=== PATIENT | female | born 1955 ===

== ENCOUNTER 2016-11-06 19:37 | Inpatient (IN) | payer MEDICAID ==
[2016-11-06] MEDS ORDERED: Povidone Iodine Topical 10% Sol ONE (20:08)
[2016-11-06 20:30] LABS: BASO # 0.1 K/uL (0.0-0.2); BASO % 0.7 % (0.0-2.0); EOS # 0.1 K/uL (0.0-0.7); HEMATOCRIT 44.9 % (34.0-47.0); LYMPH # 2.8 K/uL (1.0-4.3); LYMPH % 20.7 % (20.0-40.0); MEAN CELL VOLUME 90.3 fl (81.0-99.0); MEAN CORPUSCULAR HEMOGLOBIN 29.9 pg (27.0-31.0); MEAN CORPUSCULAR HGB CONC 33.1 g/dL (33.0-37.0); MEAN PLATELET VOLUME 8.6 fl (7.2-11.7); MONO # 0.9 K/uL (0.0-0.8); NEUT # 9.5 K/uL (1.8-7.0); NEUT % 70.6 % (50.0-75.0); NRBC % 0.1 % (0.0-0.0); RED CELL DISTRIBUTION WIDTH 13.5 % (11.5-14.5); WHITE BLOOD COUNT 13.5 K/uL (4.8-10.8)
--- NOTE | 2016-11-06 20:37 | ED PDOC ---
HPI: Psych/Substance Abuse Time Seen by Provider: 11/06/16 19:45 Chief Complaint (Nursing): Altered Mental Status Chief Complaint (Provider): Bizarre Behavior History Per: Patient, Family (son) History/Exam Limitations: no limitations (though history per patient may be unreliable) Onset/Duration Of Symptoms: Days (x3) Current Symptoms Are (Timing): Still Present Suicide/Self Injury Attempted (Context): None Involuntary Hold By: None Additional Complaint(s): Sabi Sorensen is a 61 year old female, with a past medical history inclusive of HTN, COPD, thyroid issues, bipolar disorder, anxiety, depression and previous suicide attempts, who presents to the ED on 11/06/16, via EMS and accompanied by her son, for the evaluation of bizarre behavior that she has reportedly exhibited over the past 3 days. Per son, patient has been stating that various members of her family are either having babies or dying, none of which are true. In addition, patient has not been sleeping well of late, with son also noting that the patient's home environment is "a mess" and that there was vomit present in the house. Though patient has reported she is "fine", son is unsure as to whether she is taking her medications appropriately. ED visit was prompted after patient had walked out of her bedroom with a bleeding left foot just prior to arrival and had been unable to give any history as to how/ why she had been injured. Of note, history as reported by patient may be unreliable. PMD: Tay Forman Past Medical History Reviewed: Historical Data, Nursing Documentation, Vital Signs Vital Signs: Last Vital Signs Temp Pulse 83 11/06/16 19:42 Resp 18 11/06/16 19:42 BP 107/80 11/06/16 19:42 Pulse Ox 98 11/06/16 19:42 - Medical History PMH: Anxiety, Arthritis, Asthma, Bipolar Disorder, COPD, Depression, HTN, Hypercholesterolemia Denies: Diabetes, Hepatitis, HIV, Chronic Kidney Disease, Seizures, Sexually Transmitted Disease - Surgical History Surgical History: - Family History Family History: States: Unknown Family Hx - Home Medications Home Medications: Ambulatory Orders Medication Instructions Recorded Acetaminophen/Oxycodone Hydr 1 tab PO Q6H 03/22/16 [Percocet 10/325 mg Tab] Albuterol 0.083% [Albuterol 0.083% 2.5 mg INH PRN PRN 03/22/16 Inhal Diana (2.5 mg/3 ml) UD] Alprazolam [Xanax] 2 mg PO TID 03/22/16 Atorvastatin [Lipitor] 10 mg PO DIN 03/22/16 Celecoxib [celeBREX] 200 mg PO DAILY 03/22/16 Diclofenac Sodium [Voltaren] 100 gm TP DAILY 03/22/16 Meclizine HCl [Antivert/25] 25 mg PO Q6H PRN 03/22/16 Montelukast [Singulair] 10 mg PO DAILY 03/22/16 Omeprazole 20 mg PO DAILY 03/22/16 SUMAtriptan [Imitrex Tab] 50 mg PO PRN 03/22/16 Zolpidem [Ambien] 10 mg PO HS 03/22/16 Fluticasone/Salmeterol [Advair 1 puff INH BID #0 blst.w.dev 03/29/16 500-50 Diskus] Gabapentin [Neurontin] 300 mg PO QID #0 cap 03/29/16 - Allergies Allergies/Adverse Reactions: Allergies Allergy/AdvReac Type Severity Reaction Status Date / Time No Known Allergies Allergy Verified 11/10/15 15:19 Review of Systems ROS Statement: Except As Marked, All Systems Reviewed And Found Negative (and as per HPI, however history may be unreliable.) Gastrointestinal: Positive for: Vomiting Musculoskeletal: Positive for: Foot Pain (bleeding wound on left foot) Psych: Positive for: Anxiety, Psychosis, Other (bizarre behavior, decreased sleep) Physical Exam - Reviewed Nursing Documentation Reviewed: Yes Vital Signs Reviewed: Yes - Physical Exam Appears: Positive for: Non-toxic, In Acute Distress (mild painful/psychiatric distress) Head Exam: Positive for: ATRAUMATIC, NORMOCEPHALIC Skin: Positive for: Normal Color, Warm, Dry Eye Exam: Positive for: Normal appearance, PERRL ENT: Negative for: Pharyngeal Erythema, Tonsillar Exudate Neck: Positive for: Painless ROM, Supple Cardiovascular/Chest: Positive for: Regular Rate, Rhythm. Negative for: Murmur Respiratory: Positive for: Normal Breath Sounds. Negative for: Respiratory Distress Gastrointestinal/Abdominal: Positive for: Normal Exam, Soft. Negative for: Tenderness Back: Positive for: Normal Inspection. Negative for: Decreased ROM Extremity: Positive for: Normal ROM (of all extremities), Other (superficial laceration noted to hallux of left foot w/slow ooze of blood, well approximated) . Negative for: Deformity, Swelling Lymphatic: Negative for: Adenopathy Neurologic/Psych: Positive for: Alert, Oriented (x2), Mood/Affect (anxous mood w /pressured speech and poor concentration/thought process). Negative for: Motor/ Sensory Deficits - Laboratory Results Result Diagrams: 11/06/16 20:13 11/06/16 20:13 - ECG ECG: Positive for: Interpreted By Me ECG Rhythm: Positive for: Normal QRS, Normal ST Segment, Sinus Rhythm O2 Sat by Pulse Oximetry: 98 (RA) Pulse Ox Interpretation: Normal - Radiology X-Ray: Interpreted by Me X-Ray Interpretation: No Acute Disease Medical Decision Making Medical Decision Makin:45 Initial Impression: will clear patient medically for psychiatric evaluation Initial Plan: * EKG * CXR * XR Left Foot * Labs * Lipase * TSH * PTT * PT * Magnesium * Phosphorus * Acetaminophen * Salicylate * Udip * Urine Drug Screen * Crisis Evaluation * Reevaluation 21:10 Labs reviewed, mildly elevated WBC count (13.0). Per podiatry recommendation will order administration of both IV NS 500ml at 500mls/hr and Ancef IV. Wound care performed by Dr Guadalupe. Evaluated by NATALIE Tenorio who dw Dr Acevedo. Pt to be admitted for depression Pt medically stable for psychiatric admission Scribe Attestation: Documented by Kendal Valderrama, acting as a scribe for Daniela Lockett MD. Provider Scribe Attestation: All medical record entries made by the Scribe were at my direction and personally dictated by me. I have reviewed the chart and agree that the record accurately reflects my personal performance of the history, physical exam, medical decision making, and the department course for this patient. I have also personally directed, reviewed, and agree with the discharge instructions and disposition. Disposition - Clinical Impression Clinical Impression: Foot laceration, Depression Counseled Patient/Family Regarding: Studies Performed, Diagnosis - Disposition Disposition Time: 21:00 Condition: STABLE - Pt Status Changed To: Hospital Disposition Of: Inpatient - Admit Certification Admit to Inpatient:: After my assessment, the patient will require hospitalization for at least two midnights. This is because of the severity of symptoms shown, intensity of services needed, and/or the medical risk in this patient being treated as an outpatient. - POA Present On Arrival: Falls Or Trauma
--- NOTE | 2016-11-06 20:46 | CP.PCM.CON ---
History of Present Illness - History of Present Illness History of Present Illness: 61 y/o female patient with PMHx of Anxiety, Arthritis, Asthma, Bipolar Disorder , COPD, Depression, HTN, Hypercholesterolemia seen and evaluated at bedside in the ER after request for podiatry consult. Patient's son presents at bedside. Patient states that she stepped on glasses in the bathroom and had injured her left foot, however when her son found her in the bathroom there was no glasses around her. Left foot was dressed with DSD. As per patient's son, patient had multiple episodes of Suicidal ideation recently and she does not remember how she injured her left foot today. Patient denies any pedal pain at this time. Patient denies any symptoms of N/V/F/SOB/Chest pain. Past Patient History - Infectious Disease Hx of Infectious Diseases: None - Tetanus Immunizations Tetanus Immunization: Unknown - Past Medical History & Family History Past Medical History?: Yes - Past Social History Smoking Status: Current Some Days Smoker - CARDIAC Hx Hypercholesterolemia: Yes Hx Hypertension: Yes - PULMONARY Hx Asthma: Yes Hx Chronic Obstructive Pulmonary Disease (COPD): Yes - NEUROLOGICAL Hx Seizures: No - HEENT Hx HEENT Problems: Yes (allergic rhinitis) - RENAL Hx Chronic Kidney Disease: No - ENDOCRINE/METABOLIC Hx Endocrine Disorders: No - HEMATOLOGICAL/ONCOLOGICAL Hx Human Immunodeficiency Virus (HIV): No - INTEGUMENTARY Hx Dermatological Problems: No - MUSCULOSKELETAL/RHEUMATOLOGICAL Hx Arthritis: Yes - GASTROINTESTINAL Hx Gastrointestinal Disorders: Yes Hx Gastroesophageal Reflux: Yes - GENITOURINARY/GYNECOLOGICAL Hx Sexually Transmitted Disorders: No - PSYCHIATRIC Hx Anxiety: Yes Hx Bipolar Disorder: Yes Hx Depression: Yes - SURGICAL HISTORY Hx Surgeries: Yes Hx Section: Yes - ANESTHESIA Hx Anesthesia: Yes Hx Anesthesia Reactions: No Meds Allergies/Adverse Reactions: Allergies Allergy/AdvReac Type Severity Reaction Status Date / Time No Known Allergies Allergy Verified 11/10/15 15:19 Physical Exam - Constitutional Appears: Non-toxic, No Acute Distress - Extremities Exam Additional comments: LLE examination Vascular: DP and PT palpable, CFT is less than 3 seconds, no pedal edema, noemal skin temp Derm: Open wound noted to left foot dorso-medial aspect of 1st metatarsal head area,( approximately transverse 1.5cm) no active bleeding. no signs of infection , no erythema, multiple Hyperkeratotic lesions on the plantar aspect of left foot Ortho:No pain with palpation, limited ROM of ankle Neuro: Protective sensation intact, light touch intact - Neurological Exam Neurological exam: Alert, CN II-XII Intact, Oriented x3 - Psychiatric Exam Psychiatric exam: Normal Affect Results - Vital Signs Recent Vital Signs: Last Vital Signs Temp Pulse 83 11/06/16 19:42 Resp 18 11/06/16 19:42 BP 107/80 11/06/16 19:42 Pulse Ox 98 11/06/16 20:37 - Labs Result Diagrams: 11/06/16 20:13 Labs: Laboratory Results - last 24 hr 11/06/16 20:13 WBC 13.5 H RBC 4.97 Hgb 14.9 Hct 44.9 MCV 90.3 D MCH 29.9 MCHC 33.1 RDW 13.5 Plt Count 419 H MPV 8.6 Neut % (Auto) 70.6 Lymph % (Auto) 20.7 Jennings % (Auto) 7.0 Eos % (Auto) 1.0 Baso % (Auto) 0.7 Neut # 9.5 H Lymph # 2.8 Jennings # 0.9 H Eos # 0.1 Baso # 0.1 Assessment & Plan - Assessment and Plan (Free Text) Assessment: 61 y/o female patient with left foot dorso-medial aspect of 1st metatarsal head laceration. Plan: Patient seen and evaluated at bedside in ER All the questions and concerns were addressed Discussed with attending Dr. De Souza Left foot was cleansed with normal sterile saline solution Labs and vitals were reviewed 1 dose of Ancef was ordered Left foot laceration area was flushed with Betadine The laceration was closed with Dermabond The left foot was dressed with Betadine soaked telfa and DSD Advised patient to follow up with Podiatry clinic or if patient will remain in house, podiatry will follow the patient.
[2016-11-06 20:52] LABS: ALB/GLOB RATIO 1.1 (1.0-2.1); ALCOHOL SERUM < 10 mg/dl (0-10); ALKALINE PHOSPHATASE 88 U/L (38-126); ALT/SGPT 24 U/L (9-52); AST/SGOT 83 U/L (14-36); BLOOD UREA NITROGEN 23 mg/dl (7-17); CALCIUM 9.6 mg/dL (8.4-10.2); CARBON DIOXIDE 20 mmol/L (22-30); CHLORIDE 105 mmol/L (98-107); GFR AFRICAN-AMERICAN > 60; GLUCOSE,RANDOM 154 mg/dL (65-105); LIPASE 56 U/L (23-300); MAGNESIUM 2.1 MG/DL (1.6-2.3); PHOSPHOROUS 4.5 mg/dl (2.5-4.5); POTASSIUM 5.5 MMOL/L (3.6-5.0); SODIUM 137 mmol/l (132-148); TOTAL PROTEIN 9.4 G/DL (6.3-8.2)
[2016-11-06] MEDS ORDERED: ceFAZolin 1 GM in Sodium Chloride 0.9% 100 ML IV STA (21:06)
[2016-11-06] MEDS ORDERED: Sodium Chloride 0.9% 500 ML IV STA (21:10)
[2016-11-06 21:32] LABS: THYROID STIMULATING HORMONE 0.83 mIU/ML (0.46-4.68)
[2016-11-06] MEDS ORDERED: DiphenhydrAMINE 50 mg/ml Inj IM PRN (23:11)
[2016-11-06] MEDS ORDERED: Magnesium Hydroxide Susp 30 ml UD PO PRN (23:11)
[2016-11-06] MEDS ORDERED: Alum-Mag Hydrox-Simethicone Susp (30 mL) PO PRN (23:11)
--- NOTE | 2016-11-07 07:42 | CARD ---
APPROVED REPORT EKG Measurement Heart [id number] <Conclusion> Normal sinus rhythm Normal ECG
--- NOTE | 2016-11-07 09:21 | CP.PCM.PN ---
Subjective - Date & Time of Evaluation Date of Evaluation: 11/07/16 Time of Evaluation: 08:50 - Subjective Subjective: 61 y/o female patient with PMHx of Anxiety, Arthritis, Asthma, Bipolar Disorder , COPD, Depression, HTN, Hypercholesterolemia seen at bedside Psych this morning concerning small cut wound to dorsum of Left met head. Patient was resting comfortably in chair at the time of visit this morning. Patient is able to give better description of how she injured her foot today. She states that she was trying to move a small table by herself and the table fell and landed on her left foot, leaving the cut. She denies of any pain to the injured foot today and is able to walk without pain. Patient denies of any N/V/F/C or SOB today Objective - Vital Signs/Intake and Output Vital Signs (last 24 hours): Temp Pulse Resp BP Pulse Ox 98.7 F 75 18 118/67 95 11/06/16 23:12 11/06/16 23:12 11/06/16 23:12 11/06/16 23:12 11/06/16 22:30 - Medications Medications: Current Medications Acetaminophen (Tylenol 325mg Tab) 650 mg PO Q4 PRN PRN Reason: Pain, moderate (4-7) Last Admin: 11/06/16 23:50 Dose: 650 mg Al Hydrox/Mg Hydrox/Simethicone (Maalox Plus 30 Ml) 30 ml PO Q4 PRN PRN Reason: Dyspepsia Diphenhydramine HCl (Benadryl) 50 mg PO Q6 PRN PRN Reason: Extrapyramidal Symptoms Diphenhydramine HCl (Benadryl) 50 mg IM Q6 PRN PRN Reason: Extrapyramidal S/S Unable PO Diphenhydramine HCl (Benadryl) 50 mg PO HS PRN PRN Reason: Sleep Last Admin: 11/06/16 23:50 Dose: 50 mg Haloperidol (Haldol) 5 mg PO Q4 PRN PRN Reason: Agitation Last Admin: 11/06/16 23:50 Dose: 5 mg Haloperidol Lactate (Haldol) 5 mg IM Q4 PRN PRN Reason: Agitation, Unable to Take PO Lorazepam (Ativan) 2 mg PO Q4 PRN PRN Reason: Anxiety/Agitation Last Admin: 11/06/16 23:50 Dose: 2 mg Lorazepam (Ativan) 2 mg IM Q4 PRN PRN Reason: Anxiety/Agitation,Unable PO Magnesium Hydroxide (Milk Of Magnesia) 30 ml PO HS PRN PRN Reason: Constipation - Labs Labs: PT 10.9 SECONDS (9.6-11.2) 11/06/16 20:13 INR 1.05 (0.92-1.08) 11/06/16 20:13 APTT 24.0 SECONDS (23.3-32.5) 11/06/16 20:13 - Constitutional Appears: Well, Non-toxic, No Acute Distress - Extremities Exam Additional comments: LLE examination Vascular: DP and PT palpable, CFT is less than 3 seconds, no pedal edema, noemal skin temp Derm: Well coapted laceration site with Dermabond noted to dorso-medial aspect of 1st metatarsal head area, (approximately transverse 1.5cm) no active bleeding. no signs of infection, no erythema, multiple Hyperkeratotic lesions on the plantar aspect of left foot Ortho:No pain with palpation, limited ROM of ankle Neuro: Protective sensation intact, light touch intact - Neurological Exam Neurological Exam: Alert, Awake, Oriented x3 - Psychiatric Exam Psychiatric exam: Normal Affect, Normal Mood - Skin Skin Exam: Normal Color, Warm Assessment and Plan - Assessment and Plan (Free Text) Assessment: 61 y/o female patient with left foot dorso-medial aspect of 1st metatarsal head laceration. Plan: Patient seen and evaluated at bedside in ER All the questions and concerns were addressed Discussed with attending Dr. De Souza Labs and vitals were reviewed The left foot was dressed with Betadine soaked telfa and DSD podiatry will follow the patient in house
[2016-11-07 10:35] LABS: T4 9.19 ug/dl (5.5-11.0)
[2016-11-07 10:49] LABS: THYROID STIMULATING HORMONE 1.58 mIU/ML (0.46-4.68)
--- NOTE | 2016-11-07 11:31 | RAD ---
PROCEDURE: CHEST RADIOGRAPH, 1 VIEW HISTORY: CONFUSION COMPARISON: 03/22/2016. FINDINGS: LUNGS: Clear. PLEURA: No pneumothorax or pleural fluid seen. CARDIOVASCULAR: No radiographic findings to suggest acute or significant cardiovascular disease. OSSEOUS STRUCTURES: No significant abnormalities. VISUALIZED UPPER ABDOMEN: Normal. OTHER FINDINGS: None. IMPRESSION: No active disease. No acute/significant interval changes.
--- NOTE | 2016-11-07 12:14 | PCM.PSYCH ---
Initial Psychiatric Evaluation - Initial Psychiatric Evaluation Type of Admission: Voluntary Legal Status: Capacity Chief Complaint (in patient's own words): i need help Patient's Reaction to Hospitalization: cooperative History of Present Illness and Precipitating Events: 61 yo female with history of schizoaffective disorder. she was seeing luis daniel ariza in the clinic. she stopped going to appointment or taking medications since april 2016. she has become increasingly disorganized and bizarre and anxious. pt states she hasn't slept in 4 days. she apparently is paranoid and feels unsafe in her apartment. pt's brother visited and became concerned and brought the pt to the ER. she does endorse feeling anxious and having panic attacks. she agrees that seroquel was helpful in the past. she denies use of xanax and uds is negative. Current Medications: Active Medications Generic Name Dose Route Start Last Admin Trade Name Freq PRN Reason Stop Dose Admin Acetaminophen 650 mg 11/06/16 23:11 11/06/16 23:50 Tylenol 325mg Tab PO 650 mg Q4 PRN Administration Pain, moderate (4-7) Al Hydrox/Mg Hydrox/Simethicone 30 ml 11/06/16 23:11 Maalox Plus 30 Ml PO Q4 PRN Dyspepsia Diphenhydramine HCl 50 mg 11/06/16 23:11 Benadryl PO Q6 PRN Extrapyramidal Symptoms Diphenhydramine HCl 50 mg 11/06/16 23:11 Benadryl IM Q6 PRN Extrapyramidal S/S Unable PO Diphenhydramine HCl 50 mg 11/06/16 23:20 11/06/16 23:50 Benadryl PO 50 mg HS PRN Administration Sleep Haloperidol 5 mg 11/06/16 23:11 11/06/16 23:50 Haldol PO 5 mg Q4 PRN Administration Agitation Haloperidol Lactate 5 mg 11/06/16 23:11 Haldol IM Q4 PRN Agitation, Unable to Take PO Lorazepam 2 mg 11/06/16 23:11 11/06/16 23:50 Ativan PO 2 mg Q4 PRN Administration Anxiety/Agitation Lorazepam 2 mg 11/06/16 23:11 Ativan IM Q4 PRN Anxiety/Agitation,Unable PO Magnesium Hydroxide 30 ml 11/06/16 23:11 Milk Of Magnesia PO HS PRN Constipation Quetiapine Fumarate 50 mg 11/07/16 22:00 Seroquel PO HS [facility] Past Psychiatric History - Past Psychiatric History Previous Treatment History: Inpatient Prior Professional Help: previous admission to [facility] History of Abuse: denies History of ETOH/Drug Use: history of taking xanax. states she smoked cigarettes in past but quit 2 months ago. History of Family Illness: denies Pertinent Medical Hx (Current Medical&Sleep Prob, Allergies): Allergies Allergy/AdvReac Type Severity Reaction Status Date / Time No Known Allergies Allergy Verified 11/10/15 15:19 Acetaminophen/Oxycodone Hydr [Percocet 10/325 mg Tab] 1 tab PO Q6H 03/22/16 Albuterol 0.083% [Albuterol 0.083% Inhal Diana (2.5 mg/3 ml) UD] 2.5 mg INH PRN PRN 03/22/16 Alprazolam [Xanax] 2 mg PO TID 03/22/16 Atorvastatin [Lipitor] 10 mg PO DIN 03/22/16 Celecoxib [celeBREX] 200 mg PO DAILY 03/22/16 Diclofenac Sodium [Voltaren] 100 gm TP DAILY 03/22/16 Meclizine HCl [Antivert/25] 25 mg PO Q6H PRN 03/22/16 Montelukast [Singulair] 10 mg PO DAILY 03/22/16 Omeprazole 20 mg PO DAILY 03/22/16 SUMAtriptan [Imitrex Tab] 50 mg PO PRN 03/22/16 Zolpidem [Ambien] 10 mg PO HS 03/22/16 Fluticasone/Salmeterol [Advair 500-50 Diskus] 1 puff INH BID #0 blst.w.dev 03/29 Gabapentin [Neurontin] 300 mg PO QID #0 cap 03/29/16 Review of Systems - Psychiatric Psychiatric: As Per HPI Mental Status Examination - Personal Presentation Personal Presentation: Looks stated age, Obese - Affect Affect: Broad - Motor Activity Motor Activity: Other (restless) - Reliability in Providing Information Reliability in Providing Information: Poor, due to alteration in thoughts - Speech Speech: Organized - Mood Mood: Depressed, Anxious - Formal Thought Process Formal Thought Process: Delusions, Paranoia, Loosening of associations - Hallucinations/Delusions Delusions: Persecution - Obsessions/Compulsions Obsessions: No Compulsions: No - Cognitive Functions Orientation: Person, Place, Situation, Time Sensorium: Alert Attention/Concentration: Attentive Abstract Thinking: [place] Estimate of Intelligence: Average Judgement: Intact, as evidence by: Insight regarding need for hospitalization Memory: Recent intact, as evidence by: Ability to recall events of the day, Remote intact, as evidenced by: Abilit to recall sig. life events - Risk Risk: Suicidal (denies current suicidal thoughts), Diminished functioning - Strength & Assets Inventory Strength & Assets Inventory: Family support - Limitations Limitations: Other (non-adherent) DSM 5 DX - DSM 5 DSM 5 Diagnosis: schizoaffective disorder, biplolar type - Recommended/Plan of Treatment Treatment Recommendations and Plan of Treatment: admit to [facility] for safety and observation gather collateral informatio provide supportive therapy adjust medications- restart seroquel hospitalist consult disposition planning Projected ELOS: 5-7 days Prognosis: fair - Smoking Cessation Smoking Cessation Initiated: No Reason for not providing: does not smoke
[2016-11-07 14:23] VITALS: O2SAT 98
--- NOTE | 2016-11-07 15:02 | CP.PCM.CON ---
History of Present Illness - History of Present Illness History of Present Illness: Internal medicine consult. 61 y/o F, admitted to Psychiatric unit on 11/06/16 after been noticed by son to be acting bizarre and erratic, hearing voices on DOA with no relief of symptoms. Son called EMS and Pt was brought to [facility], after evaluation was admitted. Worsening symptoms: Excessive anxiety, Insomnia ( Pt c/o unable to sleep well x 4 days RN NIGHT), pain in her L foot, intensity 5:10 2nd to accidental laceration in her L foot, as per Pt, she was having a cup of coffee when suddenly she felt a panic attack and dropped the cup that she was having in her L leg causing laceration on her L foot. Also, Pt's son found vomiting in the sink night RN NIGHT. Aggravated Factor: Pt with Hx of Schizophrenia in non-compliance with medications and Psychiatric f/u visits since 2015. Pt denied: Fever, chills, nausea, abdominal pain, CP, SOB, cough, sick contact , recent travel. PMHx: Bipolar disorder, Schizophrenia, Anxiety, Depression, COPD,Asthma, HTN, Hypercholesterolemia, Chronic lumbago, Chronic pain in R-L knee, O/A, Urinary Incontinence, Hx of Suicide attempts , Heavy smoker L foot X-Ray showed: Soft tissue swelling, no acute Fx. CXR+ No active disease. EKG: Normal sinus rhythm Review of Systems - Constitutional Constitutional: Other (negative) - EENT Eyes: Other (negative) Ears: Other (negative) Nose/Mouth/Throat: Other (negative) - Cardiovascular Cardiovascular: Other (negative) - Respiratory Respiratory: Other (negative) - Gastrointestinal Gastrointestinal: Diarrhea, Vomiting - Genitourinary Genitourinary: Urinary Incontinence - Musculoskeletal Musculoskeletal: Arthralgias, Back Pain - Integumentary Integumentary: Lesions - Neurological Neurological: Other (negative) - Psychiatric Psychiatric: Abnormal Sleep Pattern, Anxiety, Behavioral Changes, Confusion, Depression, Paranoia - Endocrine Endocrine: Other (negative) - Hematologic/Lymphatic Hematologic: Other (negative) Past Patient History - Infectious Disease Hx of Infectious Diseases: None - Tetanus Immunizations Tetanus Immunization: Unknown - Past Medical History & Family History Past Medical History?: Yes Pertinent Family History: Bipolar disorder, Depression, Anxiety, Addiction. - Past Social History Smoking Status: Current Some Days Smoker Alcohol: None Drugs: Denies Home Situation {Lives}: Alone - CARDIAC Hx Cardiac Disorders: Yes Hx Hypercholesterolemia: Yes Hx Hypertension: Yes - PULMONARY Hx Respiratory Disorders: Yes Hx Asthma: Yes Hx Chronic Obstructive Pulmonary Disease (COPD): Yes - NEUROLOGICAL Hx Neurological Disorder: No Hx Seizures: No - HEENT Hx HEENT Problems: Yes (allergic rhinitis) - RENAL Hx Chronic Kidney Disease: No - ENDOCRINE/METABOLIC Hx Endocrine Disorders: No - HEMATOLOGICAL/ONCOLOGICAL Hx Blood Disorders: No Hx Human Immunodeficiency Virus (HIV): No - INTEGUMENTARY Hx Dermatological Problems: No - MUSCULOSKELETAL/RHEUMATOLOGICAL Hx Musculoskeletal Disorders: Yes Hx Arthritis: Yes Hx Back Pain: Yes - GASTROINTESTINAL Hx Gastrointestinal Disorders: Yes Hx Gastroesophageal Reflux: Yes - GENITOURINARY/GYNECOLOGICAL Hx Genitourinary Disorders: Yes Hx Incontinence: Yes Hx Sexually Transmitted Disorders: No - PSYCHIATRIC Hx Psychophysiologic Disorder: Yes Hx Anxiety: Yes Hx Bipolar Disorder: Yes Hx Depression: Yes Hx Schizophrenia: Yes - SURGICAL HISTORY Hx Surgeries: Yes Hx Section: Yes - ANESTHESIA Hx Anesthesia: Yes Hx Anesthesia Reactions: No Meds Allergies/Adverse Reactions: Allergies Allergy/AdvReac Type Severity Reaction Status Date / Time No Known Allergies Allergy Verified 11/10/15 15:19 - Medications Medications: Current Medications Acetaminophen (Tylenol 325mg Tab) 650 mg PO Q4 PRN PRN Reason: Pain, moderate (4-7) Last Admin: 11/06/16 23:50 Dose: 650 mg Al Hydrox/Mg Hydrox/Simethicone (Maalox Plus 30 Ml) 30 ml PO Q4 PRN PRN Reason: Dyspepsia Diphenhydramine HCl (Benadryl) 50 mg PO Q6 PRN PRN Reason: Extrapyramidal Symptoms Diphenhydramine HCl (Benadryl) 50 mg IM Q6 PRN PRN Reason: Extrapyramidal S/S Unable PO Diphenhydramine HCl (Benadryl) 50 mg PO HS PRN PRN Reason: Sleep Last Admin: 11/06/16 23:50 Dose: 50 mg Haloperidol (Haldol) 5 mg PO Q4 PRN PRN Reason: Agitation Last Admin: 11/06/16 23:50 Dose: 5 mg Haloperidol Lactate (Haldol) 5 mg IM Q4 PRN PRN Reason: Agitation, Unable to Take PO Lorazepam (Ativan) 2 mg PO Q4 PRN PRN Reason: Anxiety/Agitation Last Admin: 11/06/16 23:50 Dose: 2 mg Lorazepam (Ativan) 2 mg IM Q4 PRN PRN Reason: Anxiety/Agitation,Unable PO Magnesium Hydroxide (Milk Of Magnesia) 30 ml PO HS PRN PRN Reason: Constipation Quetiapine Fumarate (Seroquel) 50 mg PO HS PRAVEENA Physical Exam - Constitutional Appears: No Acute Distress - Head Exam Head Exam: NORMAL INSPECTION - Eye Exam Eye Exam: PERRL - ENT Exam ENT Exam: Normal Oropharynx - Neck Exam Neck exam: Positive for: Normal Inspection - Respiratory Exam Respiratory Exam: Decreased Breath Sounds (at bases) - Cardiovascular Exam Cardiovascular Exam: REGULAR RHYTHM - GI/Abdominal Exam GI & Abdominal Exam: Normal Bowel Sounds, Soft - Extremities Exam Additional comments: Superficial Laceration to hallux L foot, dressing in place. - Back Exam Back exam: NORMAL INSPECTION, tenderness (mild) - Neurological Exam Neurological exam: Alert, Oriented x3 Additional comments: No motor sensory deficit - Psychiatric Exam Psychiatric exam: Anxious, Depressed - Skin Skin Exam: Warm Results - Vital Signs Recent Vital Signs: Last Vital Signs Temp 98.8 F 11/07/16 09:00 Pulse 87 11/07/16 09:00 Resp 18 11/07/16 09:00 BP 124/83 11/07/16 09:00 Pulse Ox 98 11/07/16 14:23 reviewed J.P. - Labs Result Diagrams: 11/06/16 20:13 11/09/16 21:32 Labs: Laboratory Results - last 24 hr 11/07/16 09:54 Triglycerides 140 Cholesterol 171 LDL Cholesterol Direct 102 HDL Cholesterol 41 Thyroxine (T4) 9.19 TSH 3rd Generation 1.58 reviewed J.P. - EKG Data EKG comments: Reviewed J.P. - Impressions Impression: X-Ray L Foot, reviewed J.P. - Imaging and Cardiology Chest x-ray Status: Report reviewed by me (Drake) Assessment & Plan (1) Schizo affective schizophrenia Status: Acute Priority: High (2) Laceration of left foot Status: Acute Priority: High (3) Anxiety attack Status: Acute Priority: High (4) Lumbago Status: Chronic Priority: Medium (5) HTN (hypertension), benign Status: Chronic Priority: Medium (6) COPD (chronic obstructive pulmonary disease) Status: Chronic Priority: Medium - Assessment and Plan (Free Text) Plan: Will review out patient medications , COPD and Hypertension stable - Date & Time Date: 11/07/16 Time: 12:40
--- NOTE | 2016-11-07 16:14 | RAD ---
PROCEDURE: Left Foot Radiographs. HISTORY: LEFT foot laceration r/o fx/fb COMPARISON: None. FINDINGS: BONES: No acute fracture. Plantar and Achilles Tendon insertion calcaneal spurs JOINTS: Degenerative changes, multiple hammertoe deformities. SOFT TISSUES: Soft tissue swelling without acute articular or osseous abnormality. No visualized/radiopaque foreign body OTHER FINDINGS: None. IMPRESSION: Soft tissue swelling, no radiopaque foreign body identified.
--- NOTE | 2016-11-08 08:51 | PCM.PYCHPN ---
Psychiatric Progress Note - Psychiatric Progress Note Patient seen today, length of contact: discussed with team Patient Chief Complaint: i feel more stable Problems Identified/Issues Discussed: pt reports improved sleep. she feels more steady on feet than yesterday. still c /o some "strange" thoughts. she is reporting anxiety. she is agreeing to an increase in seroquel. she is pleasant. refused groups yesterday. Medication Change: Yes (increase seroquel) Medical Record Reviewed: Yes Mental Status Examination - Cognitive Function Orientation: Person, Place, Situation, Time Memory: Intact Attention: WNL Concentration: WNL Association: Loose Fund of Knowledge: WNL - Mood Mood: Anxious - Affect Affect: Broad - Speech Speech: Appropriate - Formal Thought Process Formal Thought Process: Delusions, Loosening of associations - Suicidal Ideation Suicidal Ideation: No - Homicidal Ideation Homicidal Ideation: No Goal/Treatment Plan - Goal/Treatment Plan Need for Continued Stay: Remain at risks for inpatient hospitalization, Severe functional impairment Progress Toward Problem(s) and Goals/Treatment Plan: schizoaffective disorder bipolar type continue current treatment increase seroquel to today encourage pt to attend groups disposition planning Estimated Date of D/C: 11/14/16 - Smoking Cessation Smoking Cessation Initiated: No Reason for not providing: declines
--- NOTE | 2016-11-09 09:35 | PCM.PYCHPN ---
Psychiatric Progress Note - Psychiatric Progress Note Patient seen today, length of contact: discussed with team Patient Chief Complaint: i need xanax Problems Identified/Issues Discussed: pt states she is still anxious, but improving. she is asking for xanax. she wants a new outpt psychiatrist who will prescribe xanax for her. we discussed dangers of dependence, falls, withdrawal with xanax. she agrees to allow titration of the seroquel. she has also agreed to transfer to [facility] to help accommodate other admissions. Medication Change: Yes (increase seroquel) Medical Record Reviewed: Yes Mental Status Examination - Cognitive Function Orientation: Person, Place, Situation, Time Memory: Intact Attention: WNL Concentration: WNL Association: Loose Fund of Knowledge: WNL Decription of patient's judgement and insights: fair - Mood Mood: Anxious - Affect Affect: Broad - Speech Speech: Appropriate - Formal Thought Process Formal Thought Process: Delusions, Loosening of associations Psychotic Thoughts and Behaviors: denies a/v hallucinations. some loosening of associations - Suicidal Ideation Suicidal Ideation: No - Homicidal Ideation Homicidal Ideation: No Goal/Treatment Plan - Goal/Treatment Plan Need for Continued Stay: Remain at risks for inpatient hospitalization, Severe functional impairment Progress Toward Problem(s) and Goals/Treatment Plan: schizoaffective disorder bipolar type continue current treatment, will transfer to [facility] increase seroquel to 25/25/100 mgs disposition planning Estimated Date of D/C: 11/14/16
[2016-11-09 21:56] LABS: BLOOD UREA NITROGEN 15 mg/dl (7-17); CARBON DIOXIDE 26 mmol/L (22-30); CHLORIDE 105 mmol/L (98-107); GFR AFRICAN-AMERICAN > 60; GLUCOSE,RANDOM 120 mg/dL (65-105); POTASSIUM 3.6 MMOL/L (3.6-5.0); SODIUM 143 mmol/l (132-148)
[2016-11-09 22:45] LABS: RBC URINE 8 /hpf (0-3); URINE BACTERIA RARE (<OCC); URINE BILIRUBIN NEGATIVE (NEGATIVE); URINE BLOOD MODERATE (NEGATIVE); URINE COLOR STRAW (YELLOW); URINE GLUCOSE (UA) NEG (Normal); URINE KETONE NEGATIVE (NEGATIVE); URINE LEUKOCYTE ESTERASE NEG Leu/uL (Negative); URINE PROTEIN NEGATIVE (NEGATIVE); URINE UROBILINOGEN 0.2-1.0 mg/dL (0.2-1.0); WBC URINE < 1 /hpf (0-5)
--- NOTE | 2016-11-10 12:21 | PCM.PYCHPN ---
Psychiatric Progress Note - Psychiatric Progress Note Patient seen today, length of contact: discussed with team/discussed with team Patient Chief Complaint: presented to er and subsequently admitted for reported increase anxiety, paranoia-reports had gone to see psychiatrist to get xanax and restarted. reports then began getting more anxious and paranoid. reports had stopped attending [facility] because she wanted alprazolam-at [facility] pt had been started on clonazepam and seroquel. verbally admits felt better with treatment and medications at [facility] and was "feeling nor looking like she is now". staff report pt has been adherent with rx. pt denies side effects rx. Problems Identified/Issues Discussed: alteration in mood, alteration in self care, alteration in thought process, impaired insight Medical Problems: per chart Diagnostic Results: per psychiatry per medicine per nursing per social work per recreational therapy DSM 5 Symptoms Update: anxiety paranoia Medication Change: No Medical Record Reviewed: Yes Mental Status Examination - Cognitive Function Orientation: Person, Place, Situation, Time Memory: Intact Attention: WNL Concentration: WNL Association: Loose Fund of Knowledge: WNL Decription of patient's judgement and insights: impaired - Mood Mood: Anxious - Affect Affect: Broad - Speech Speech: Appropriate - Formal Thought Process Formal Thought Process: Delusions, Loosening of associations - Suicidal Ideation Suicidal Ideation: No - Homicidal Ideation Homicidal Ideation: No Goal/Treatment Plan - Goal/Treatment Plan Need for Continued Stay: Remain at risks for inpatient hospitalization, Severe functional impairment Progress Toward Problem(s) and Goals/Treatment Plan: inpt milieu adjust meds per status vital signs and observation per protocol and per status discharge planning in progress pt requests to return to [facility] Estimated Date of D/C: 11/14/16 - Smoking Cessation Smoking Cessation Initiated: No Reason for not providing: deferred
--- NOTE | 2016-11-10 15:05 | CP.PCM.PN ---
Subjective - Date & Time of Evaluation Date of Evaluation: 11/10/16 - Subjective Subjective: Pt with no complaints, vital signs normal. Objective - Vital Signs/Intake and Output Vital Signs (last 24 hours): Temp Pulse Resp BP Pulse Ox 98.1 F 74 20 147/71 98 11/09/16 15:35 11/09/16 19:53 11/09/16 19:53 11/09/16 19:53 11/07/16 14:23 - Medications Medications: Current Medications Al Hydrox/Mg Hydrox/Simethicone (Maalox Plus 30 Ml) 30 ml PO Q4 PRN PRN Reason: Dyspepsia Diphenhydramine HCl (Benadryl) 50 mg PO Q6 PRN PRN Reason: Extrapyramidal Symptoms Diphenhydramine HCl (Benadryl) 50 mg IM Q6 PRN PRN Reason: Extrapyramidal S/S Unable PO Diphenhydramine HCl (Benadryl) 50 mg PO HS PRN PRN Reason: Sleep Last Admin: 11/06/16 23:50 Dose: 50 mg Haloperidol (Haldol) 5 mg PO Q4 PRN PRN Reason: Agitation Last Admin: 11/06/16 23:50 Dose: 5 mg Haloperidol Lactate (Haldol) 5 mg IM Q4 PRN PRN Reason: Agitation, Unable to Take PO Ibuprofen (Motrin Tab) 600 mg PO Q8 PRN PRN Reason: Pain, moderate (4-7) Last Admin: 11/10/16 12:19 Dose: 600 mg Lorazepam (Ativan) 2 mg PO Q4 PRN PRN Reason: Anxiety/Agitation Last Admin: 11/09/16 19:52 Dose: 2 mg Lorazepam (Ativan) 2 mg IM Q4 PRN PRN Reason: Anxiety/Agitation,Unable PO Magnesium Hydroxide (Milk Of Magnesia) 30 ml PO HS PRN PRN Reason: Constipation Quetiapine Fumarate (Seroquel) 25 mg PO BID PRAVEENA Last Admin: 11/10/16 08:43 Dose: 25 mg Quetiapine Fumarate (Seroquel) 100 mg PO HS PRAVEENA Last Admin: 11/09/16 21:22 Dose: 100 mg - Labs Labs: 11/09/16 21:32 PT 10.9 SECONDS (9.6-11.2) 11/06/16 20:13 INR 1.05 (0.92-1.08) 11/06/16 20:13 APTT 24.0 SECONDS (23.3-32.5) 11/06/16 20:13 - Constitutional Appears: No Acute Distress - Head Exam Head Exam: NORMAL INSPECTION - Eye Exam Eye Exam: PERRL - ENT Exam ENT Exam: Normal Oropharynx - Neck Exam Neck Exam: Normal Inspection - Respiratory Exam Respiratory Exam: Decreased Breath Sounds (at bases) - Cardiovascular Exam Cardiovascular Exam: REGULAR RHYTHM - GI/Abdominal Exam GI & Abdominal Exam: Soft, Normal Bowel Sounds - Extremities Exam Additional comments: Superficial laceration L foot healing well, no redness. - Back Exam Back Exam: NORMAL INSPECTION, tenderness (mild) - Neurological Exam Neurological Exam: Alert, Oriented x3. absent: Motor Sensory Deficit - Psychiatric Exam Psychiatric exam: Anxious, Depressed - Skin Skin Exam: Warm Assessment and Plan (1) Schizo affective schizophrenia Status: Acute (2) Laceration of left foot Status: Acute (3) Anxiety attack Status: Acute (4) Lumbago Status: Chronic (5) HTN (hypertension), benign Status: Chronic (6) COPD (chronic obstructive pulmonary disease) Status: Chronic (7) Diabetes Status: Acute - Assessment and Plan (Free Text) Plan: Potassium normal, f/u CBC, CMP on Saturday.
--- NOTE | 2016-11-12 03:09 | PCM.PYCHPN ---
Psychiatric Progress Note - Psychiatric Progress Note Patient seen today, length of contact: discussed with team/discussed with team Patient Chief Complaint: reports that is feeling less depressed, less anxious, is sleeping better. reports current regimen is helping is helping maintain mood, that taking alprazolam after leaving [facility] to seek provider who would clinically decide that alprazolam would be indicated, started alprazolam and reports felt as though began to lose self, not taking care of her self, making her daughters worry- realizes now that would want to avoid use of benzodiazepines. staff report pt has been adherent with medications, denies notable side effects. seen ambulating about unit unassisted. Problems Identified/Issues Discussed: alteration in mood improving, alteration in self care improving, alteration in thought process-denies psychotic symptoms, impaired insight improving Medical Problems: per chart Diagnostic Results: per psychiatry per medicine per nursing per social work per recreational therapy DSM 5 Symptoms Update: alteration in mood alteration in thought process substance dependence : benzodiazepines newly in remission non adherence with medical treatment Medication Change: No Medical Record Reviewed: Yes Mental Status Examination - Cognitive Function Orientation: Person, Place, Situation, Time Memory: Intact Attention: WNL Concentration: WNL Association: WNL Fund of Knowledge: [facility] Decription of patient's judgement and insights: somewhat improved - Mood Mood: Anxious - Affect Affect: Broad - Speech Speech: Appropriate - Suicidal Ideation Suicidal Ideation: No - Homicidal Ideation Homicidal Ideation: No Goal/Treatment Plan - Goal/Treatment Plan Need for Continued Stay: Remain at risks for inpatient hospitalization, Severe functional impairment Progress Toward Problem(s) and Goals/Treatment Plan: inpt milieu adjust meds per status vital signs and observation per protocol and per status discharge planning in progress pt requests to return to [facility] Estimated Date of D/C: 11/14/16 - Smoking Cessation Smoking Cessation Initiated: No Reason for not providing: defers
[2016-11-12 07:22] LABS: BASO # 0.1 K/uL (0.0-0.2); BASO % 0.7 % (0.0-2.0); EOS # 0.3 K/uL (0.0-0.7); EOS % 3.7 % (0.0-4.0); HEMATOCRIT 39.9 % (34.0-47.0); LYMPH # 2.7 K/uL (1.0-4.3); LYMPH % 31.3 % (20.0-40.0); MEAN CELL VOLUME 91.4 fl (81.0-99.0); MEAN CORPUSCULAR HEMOGLOBIN 30.5 pg (27.0-31.0); MEAN CORPUSCULAR HGB CONC 33.4 g/dL (33.0-37.0); MEAN PLATELET VOLUME 8.1 fl (7.2-11.7); MONO # 0.7 K/uL (0.0-0.8); MONO % 8.2 % (0.0-10.0); NEUT # 4.9 K/uL (1.8-7.0); NEUT % 56.1 % (50.0-75.0); NRBC % 0.1 % (0.0-0.0); RED CELL DISTRIBUTION WIDTH 13.4 % (11.5-14.5); WHITE BLOOD COUNT 8.7 K/uL (4.8-10.8)
[2016-11-12 07:59] LABS: ALB/GLOB RATIO 1.3 (1.0-2.1); ALKALINE PHOSPHATASE 86 U/L (38-126); ALT/SGPT 43 U/L (9-52); AST/SGOT 34 U/L (14-36); BILIRUBIN,TOTAL 0.4 mg/dl (0.2-1.3); BLOOD UREA NITROGEN 16 mg/dl (7-17); CARBON DIOXIDE 26 mmol/L (22-30); CHLORIDE 107 mmol/L (98-107); GFR AFRICAN-AMERICAN > 60; GLUCOSE,RANDOM 129 mg/dL (65-105); POTASSIUM 4.1 MMOL/L (3.6-5.0); SODIUM 144 mmol/l (132-148); TOTAL PROTEIN 6.6 G/DL (6.3-8.2)
--- NOTE | 2016-11-12 11:11 | PCM.PYCHPN ---
Psychiatric Progress Note - Psychiatric Progress Note Patient seen today, length of contact: Patient evaluated, case discussed with team, chart reviewed, 35 min Patient Chief Complaint: "I'm feeling less anxious." Problems Identified/Issues Discussed: No significant events over the weekend. The patient reports feeling less anxious. She denies current feelings of depression/paranoia/hallucinations/ rufina. She is goal oriented and feels she will be safe for discharge tomorrow. She denies adverse effect to Seroquel and understands the risks/benefits of treatment. She has no acute complaints at this time. Medication Change: No Medical Record Reviewed: Yes Mental Status Examination - Cognitive Function Orientation: Person, Place, Situation, Time Memory: Intact Attention: WNL Concentration: WNL Association: WNL Fund of Knowledge: WNL Decription of patient's judgement and insights: Fair I/J - Mood Mood: Anxious - Affect Affect: Broad - Speech Speech: Appropriate - Formal Thought Process Formal Thought Process: No Impairment Psychotic Thoughts and Behaviors: NO AH/VH/paranoia - Suicidal Ideation Suicidal Ideation: No - Homicidal Ideation Homicidal Ideation: No Goal/Treatment Plan - Goal/Treatment Plan Need for Continued Stay: Remain at risks for inpatient hospitalization, Severe functional impairment Progress Toward Problem(s) and Goals/Treatment Plan: 61 yo female w/ h/o schizoaffective disorder, bipolar type, has improved clinically, is more organized, appropriate and engages appropriately with peers. She will be psychiatrically stable for discharge tomorrow if she continues to improve clinically. -Individual, group and milieu tx -Continue Seroquel 25 mg PO AM/ 125 mg PO HS -Discharge to home tomorrow with outpatient follow-up Estimated Date of D/C: 11/13/16 - Smoking Cessation Smoking Cessation Initiated: No Reason for not providing: Not indicated
[2016-11-13 05:58] VITALS: BP 121/69; PULSE 75; RESP 18; TEMP 97.1
--- NOTE | 2016-11-13 08:33 | PCM.PYCHDC ---
Mental Status Examination - Mental Status Examination Orientation: Person, Place, Situation, Time Memory: Intact Mood: Neutral Affect: Broad Speech: Appropriate Attention: WNL Concentration: WNL Association: WNL Fund of Knowledge: WNL Formal Thought Process: No Impairment Description of patient's judgement and insight: Fair I/J Psychotic Thoughts and Behaviors: NO AH/VH/paranoia Suicidal Ideation: No Current Homicidal Ideation?: No Discharge Summary - Discharge Note Reason for Hospitalization: As per initial HPI: 61 yo female with history of schizoaffective disorder. she was seeing luis daniel ariza in the clinic. she stopped going to appointment or taking medications since april 2016. she has become increasingly disorganized and bizarre and anxious. pt states she hasn't slept in 4 days. she apparently is paranoid and feels unsafe in her apartment. pt's brother visited and became concerned and brought the pt to the ER. she does endorse feeling anxious and having panic attacks. she agrees that seroquel was helpful in the past. she denies use of xanax and uds is negative. Laboratory Data: Abnormal Lab Results 11/12/16 11/12/16 11/12/16 06:59 11:22 15:38 POC Glucose (mg/dL) 166 H 145 H Hemoglobin A1c 7.2 H 11/12/16 11/13/16 19:59 05:55 POC Glucose (mg/dL) 172 H 135 H Hemoglobin A1c Consultations:: List each consultation separately and include: 1. Reason for request. 2. Findings. 3. Follow-up Consultations: Routine medicine consult Summary of Hospital Course include:: 1. Description of specific treatment plan utilized for patients during their course of treatmen. 2. Summarize the time- course for resolution of acute symptoms and/or regressed behaviors. 3. Describe issues identified and worked on during hospitalization. 4. Describe medication utilized. 5. Describe medical problems identified and treated. 6. Reassessment of suicide risk Summary of Hospital Course: Patient admitted to the psychiatry unit. Individual, group, and milieu therapy were provided. Patient has a h/o benzodiazepine abuse, which were stopped. She was titrated up to Seroquel 25 mg PO AM/ 125 mg PO HS. She has improved mood, less anxiety and is more organized and appropriate with others. - Final Diagnosis (DSM 5) Condition upon Discharge: STABLE DSM 5: Schizoaffective disorder, bipolar type Disposition: HOME/ ROUTINE Follow-up Treatment Plan: 61 yo female w/ h/o schizoaffective disorder, bipolar type, has improved clinically, is more organized, appropriate and engages appropriately with peers. She is psychiatrically stable for discharge. -Continue Seroquel 25 mg PO AM/ 125 mg PO HS -Discharge to home tomorrow with outpatient follow-up Patient evaluated, case discussed with team, chart reviewed, prescriptions prepared, 35 min Prescriptions/Medication Reconciliation: QUEtiapine [Seroquel] 100 mg PO HS #30 tab QUEtiapine [Seroquel] 25 mg PO BID #60 tab - Smoking Cessation Smoking Cessation Medication prescribed: No Reason for not providing: Not indicated, patient denies current tobacco use - Antipsychotic Medications Pt discharged on 2 or more routine antipsychotic medications: No
== END 2016-11-13 13:15 | disposition home or self-care (01) | DRG 430 ==
LOC: H.ER 19:37 → H.ERHOLD 21:47 → H.PSYCH 23:06 → H.STEP 11-09 09:47
PROVIDERS: ADMIT Psychiatry & Neurology Psychiatry; ATTEND Psychiatry & Neurology Psychiatry
DX: F25.0 Schizoaffective disorder, bipolar type (principal); E11.9 Type 2 diabetes mellitus without complications; I10 Essential (primary) hypertension; J44.9 Chronic obstructive pulmonary disease, unspecified; Z91.14 Patient's other noncompliance with medication regimen; F41.0 Panic disorder [episodic paroxysmal anxiety]; J45.909 Unspecified asthma, uncomplicated; E78.00 Pure hypercholesterolemia, unspecified; M19.90 Unspecified osteoarthritis, unspecified site; S91.112A Laceration without foreign body of left great toe without damage to nail, initial encounter; W25.XXXA Contact with sharp glass, initial encounter; M54.5 Low back pain; G89.29 Other chronic pain; Y92.002 Bathroom of unspecified non-institutional (private) residence as the place of occurrence of the external cause; Z91.5 Personal history of self-harm; Z87.891 Personal history of nicotine dependence

== ENCOUNTER 2018-08-12 15:56 | Emergency (ER) | payer MEDICAID ==
[2018-08-12 16:15] VITALS: BP 137/72; PULSE 100; RESP 18; TEMP 98.2; O2SAT 96
--- NOTE | 2018-08-12 17:42 | ED PDOC ---
HPI: Back Time Seen by Provider: 08/12/18 17:42 Chief Complaint (Nursing): Back Pain Chief Complaint (Provider): Lower back pain Past Medical History Reviewed: Historical Data, Nursing Documentation, Vital Signs Vital Signs: Last Vital Signs Temp 98.2 F 08/12/18 16:11 Pulse 100 H 08/12/18 16:11 Resp 18 08/12/18 16:11 BP 137/72 08/12/18 16:11 Pulse Ox 96 08/12/18 16:11 - Medical History PMH: Anxiety, Arthritis, Asthma, Bipolar Disorder, COPD, Depression, HTN, Hypercholesterolemia, Schizophrenia Denies: Diabetes, Hepatitis, HIV, Chronic Kidney Disease, Seizures, Sexually Transmitted Disease - Surgical History Surgical History: - Family History Family History: States: Unknown Family Hx - Home Medications Home Medications: Ambulatory Orders Medication Instructions Recorded QUEtiapine [Seroquel] 25 mg PO BID #60 tab 11/12/16 QUEtiapine [Seroquel] 100 mg PO HS #30 tab 11/12/16 - Allergies Allergies/Adverse Reactions: Allergies Allergy/AdvReac Type Severity Reaction Status Date / Time No Known Allergies Allergy Verified 08/12/18 16:10 Review of Systems ROS Statement: Except As Marked, All Systems Reviewed And Found Negative Musculoskeletal: Positive for: Back Pain Physical Exam - Reviewed Nursing Documentation Reviewed: Yes Vital Signs Reviewed: Yes - Physical Exam Appears: Positive for: Well, Non-toxic, No Acute Distress. Negative for: Uncomfortable Head Exam: Positive for: ATRAUMATIC, NORMAL INSPECTION ENT: Positive for: Normal ENT Inspection Neck: Positive for: Normal, Painless ROM, Supple. Negative for: Decreased ROM Cardiovascular/Chest: Positive for: Regular Rate, Rhythm Respiratory: Positive for: Normal Breath Sounds Pulses-Carotid (L): 2+ Pulses-Carotid (R): 2+ Pulses-Radial (L): 2+ Pulses-Radial (R): 2+ Gastrointestinal/Abdominal: Positive for: Normal Exam Back: Positive for: Normal Inspection, L CVA Tenderness, R CVA Tenderness - ECG O2 Sat by Pulse Oximetry: 96 Medical Decision Making Medical Decision Making: Following PE from which a RO UTI vs Pyelo pt decided to leave the ER because she was not being treated well and left with urine pending and blood work yet to be drawn. Disposition - Clinical Impression Clinical Impression: Back pain - Patient ED Disposition Is Patient to be Admitted: No - Disposition Disposition: Left W/O Treatment Disposition Time: 18:22 Condition: STABLE Forms: [employer] [facility] (Malaysian)
[2018-08-12 18:40] LABS: SQUAMOUS EPITHIAL 6 /hpf (0-5); URINE BILIRUBIN NEGATIVE (NEGATIVE); URINE BLOOD LARGE (NEGATIVE); URINE CLARITY SLIGHTY-CLOUDY (Clear); URINE COLOR YELLOW (YELLOW); URINE GLUCOSE (UA) NEG (NEGATIVE); URINE LEUKOCYTE ESTERASE NEG Leu/uL (Negative); URINE PROTEIN >=500 mg/dL (NEGATIVE); URINE UROBILINOGEN 0.2-1.0 mg/dL (0.2-1.0)
== END 2018-08-12 18:20 | disposition left against medical advice (07) ==
LOC: H.ER 15:56
DX: M54.9 Dorsalgia, unspecified (principal)

== ENCOUNTER 2018-12-27 22:37 | Inpatient (IN) | payer MEDICAID ==
[2018-12-27] MEDS ORDERED: Sodium Chloride 0.9% 1,000 ML IV STA (23:19)
[2018-12-27 23:32] LABS: ABG ALLEN TEST YES; ARTERIAL BLOOD GAS HCO3 28.5 mmol/L (21-28); ARTERIAL BLOOD GAS O2 SAT 91.2 % (95-98); ARTERIAL BLOOD GAS PCO2 44 mm/Hg (35-45); ARTERIAL BLOOD GAS PH 7.44 (7.35-7.45); ARTERIAL BLOOD GAS PO2 51 mm/Hg (80-100); ARTERIAL BLOOD GAS TCO2 31.3 mmol/L (22-28)
--- NOTE | 2018-12-27 23:47 | ED PDOC ---
HPI: Trauma/Fall - HPI Time Seen by Provider: 12/27/18 22:49 Chief Complaint (Nursing): Psychiatric Evaluation Chief Complaint (Provider): Fall History Per: Patient, Family History/Exam Limitations: no limitations Onset/Duration Of Symptoms: Days (x3) Additional Complaint(s): 63 y/o female with a PMHx of COPD, O2 Dependance, HTN, Schizoaffective Disorder and DM presents to the ED for evaluation of a fall, onset three days ago. Patient reports of moving her furniture approximately three days ago when she accidentally fell injuring her lower back. Patient notes that she has since been unable to walk. Patient's son reports patient has been bed bound for the past th ree days and occasionally has moments when she is not making sense. Son notes patient did feel warm one day and thought she might have had a fever. Patient currently complains of shortness of breath associated with chest pain as well as abdominal pain and back pain. PMD: Tay Forman Past Medical History Reviewed: Historical Data, Nursing Documentation, Vital Signs Vital Signs: Last Vital Signs Temp 98.6 F 12/27/18 22:38 Pulse 101 H 12/27/18 22:55 Resp 18 12/27/18 22:38 BP 146/84 12/27/18 22:55 Pulse Ox 94 L 12/27/18 22:55 Primary Care Provider: Tay Forman - Medical History PMH: Anxiety, Arthritis, Asthma, Bipolar Disorder, COPD, Depression, HTN, Hypercholesterolemia, Schizophrenia Denies: Diabetes, Hepatitis, HIV, Chronic Kidney Disease, Seizures, Sexually Transmitted Disease Other PMH: O2 dependance - Surgical History Surgical History: - Family History Family History: States: Unknown Family Hx - Home Medications Home Medications: Ambulatory Orders Medication Instructions Recorded QUEtiapine [Seroquel] 25 mg PO BID #60 tab 11/12/16 QUEtiapine [Seroquel] 100 mg PO HS #30 tab 11/12/16 - Allergies Allergies/Adverse Reactions: Allergies Allergy/AdvReac Type Severity Reaction Status Date / Time No Known Allergies Allergy Verified 08/12/18 16:10 Review of Systems ROS Statement: Except As Marked, All Systems Reviewed And Found Negative Cardiovascular: Positive for: Chest Pain Respiratory: Positive for: Shortness of Breath Gastrointestinal: Positive for: Abdominal Pain Musculoskeletal: Positive for: Back Pain Physical Exam - Reviewed Nursing Documentation Reviewed: Yes Vital Signs Reviewed: Yes - Physical Exam Appears: Positive for: No Acute Distress (and super morbidly obese) Head Exam: Positive for: ATRAUMATIC, NORMOCEPHALIC Skin: Positive for: Normal Color, Warm, Dry Eye Exam: Positive for: Normal appearance, EOMI, PERRL ENT: Positive for: Normal ENT Inspection Neck: Positive for: Normal, Painless ROM, Supple Cardiovascular/Chest: Positive for: Regular Rate, Rhythm. Negative for: Murmur Gastrointestinal/Abdominal: Positive for: Soft, Other (Scattered abdominal wall bruising in various stages of healing. ). Negative for: Tenderness, Guarding, Rebound Back: Positive for: Other (No step off. No bony abnormalities. Difficult to palpate secondary to body habidus. ) Extremity: Positive for: Normal ROM Neurological/Psych: Positive for: Awake, Alert, Oriented (x3), stylist assistant II-XII (intact). Negative for: Motor/Sensory Deficits - Laboratory Results Result Diagrams: 12/27/18 23:37 12/27/18 23:37 Lab Results: pCO2 44 mm/Hg (35-45) 12/27/18 23:25 pO2 51 mm/Hg (80-100) L 12/27/18 23:25 HCO3 28.5 mmol/L (21-28) H 12/27/18 23:25 ABG pH 7.44 (7.35-7.45) 12/27/18 23:25 ABG Total CO2 31.3 mmol/L (22-28) H 12/27/18 23:25 ABG O2 Saturation 91.2 % (95-98) L 12/27/18 23:25 ABG Base Excess 5.0 mmol/L (-2.0-3.0) H 12/27/18 23:25 Kurtis Test Yes 12/27/18 23:25 ABG Potassium 3.8 mmol/L (3.6-5.2) 12/27/18 23:25 A-a O2 Difference 44.0 mm/Hg 12/27/18 23:25 Sodium 138.0 mmol/L (132-148) 12/27/18 23:25 Chloride 105.0 mmol/L (98-107) 12/27/18 23:25 Glucose 214 mg/dL (65-105) H 12/27/18 23:25 Lactate 1.0 mmol/L (0.7-2.1) 12/27/18 23:25 FiO2 21.0 % 12/27/18 23:25 - ECG O2 Sat by Pulse Oximetry: 94 (RA) Pulse Ox Interpretation: Normal Medical Decision Making Medical Decision Making: Time: 2318 A/P: 63 y/o female presenting with back pain and altered mental status and body aches after fall. -- Patient initially hypoxic. Likely due to the fact patient was not on oxygen on arrival. Patient is oxygen dependant. -- Will obtain imaging to rule out trauma. -- Will obtain blood work -- Will consider Pulmonary Embolism given sedentary nature for the past three days, tachycardia and hypoxia. -- Will continue to closely monitor --Type and Screen -- ABG -- CT Abd/Pelvis IV Contrast ONLY -- CT Head w/o Contrast -- CT Lumbar Spine w/o Contrast -- BMP -- Troponin I -- CBC with Differentials -- D Dimer -- PTT -- Prothrombin Time -- CXR Portable -- Sodium Chloride IV 1000 mls/hr -- Blood Culture -- Pelvis One View XR EXAM: CT Head Without IV contrast. CLINICAL HISTORY: Trauma fall TECHNIQUE: Axial computed tomography images of the head/brain without intravenous contrast. COMPARISON: CT\SD\SR - HEAD W/O CONTRAST - 03/27/2016 11:17 AM EDT FINDINGS: BRAIN: Mild periventricular, deep and subcortical white matter hypodensity bilaterally, compatible with mild Bilateral basal ganglia calcification is noted. No evidence for acute intracranial hemorrhage. VENTRICLES: Mild prominence of ventricles and sulci compatible with mild atrophy. ORBITS: The orbits are unremarkable. SINUSES AND MASTOIDS: The paranasal sinuses and mastoid air cells are clear. BONES: No fracture. SOFT TISSUES: Unremarkable. MISCELLANEOUS: No evidence for acute territorial infarction. IMPRESSION: 1. Mild prominence of ventricles and sulci compatible with mild atrophy. 2. Mild periventricular, deep and subcortical white matter hypodensity bilaterally, compatible with mild 3. Bilateral basal ganglia calcification is noted. 4. No evidence for acute territorial infarction. 5. No evidence for acute intracranial hemorrhage. 6. No evidence for displaced calvarial fracture. 7. Little interval change as compared with March 27, 2016. Electronically signed on December 28, 2018 2:46:34 AM EDT by: Esa Alfredo M.D., M.B.A., Certified By [employer] Fellowship Trained MRI and CT Specialist EXAM: CTA Chest, Abdomen and Pelvis with Intravenous Contrast CLINICAL HISTORY: Trauma fall 3 days ago severe lbp sob elevated d dimer TECHNIQUE: Axial CTA images of the chest and abdomen with intravenous contrast. Reformatted images were created and reviewed. 1746.84 mGy-cm CONTRAST: With; visipaque 95ml COMPARISON: None provided. FINDINGS: VASCULATURE: AORTA Thoracic aorta is mildly atherosclerotic without aneurysm or dissection. The abdominal aorta is mildly atherosclerotic without aneurysm or dissection. PULMONARY ARTERIES The examination is optimized for assessment of the aorta, rather than the pulmonary arteries. No evidence of central or segmental pulmonary embolism is seen. CHEST: Lungs: Mild airspace opacity in the anterior right middle lobe is most compatible with atelectasis. Pleural spaces: No pneumothorax evident. No pleural effusions. Heart: No cardiomegaly. No significant pericardial effusion. ABDOMEN: LIVER Unremarkable. No mass. GALLBLADDER AND BILE DUCTS No calcified stone. No ductal dilation. PANCREAS Unremarkable. No ductal dilation. SPLEEN Unremarkable. ADRENAL No mass. KIDNEYS AND URETERS The kidneys enhance symmetrically. No hydronephrosis. No solid mass. STOMACH AND BOWEL Fluid is noted in the rectum, compatible with diarrhea. Mild colonic diverticulosis without evidence for acute diverticulitis. No bowel obstruction. APPENDIX Normal appendix. PELVIS: URINARY BLADDER Unremarkable. REPRODUCTIVE Unremarkable as visualized. PERITONEUM No free fluid. No free air. LYMPH NODES No lymphadenopathy is evident. BONES Moderate multilevel degenerative spine changes. IMPRESSION: 1. Thoracic aorta is mildly atherosclerotic without aneurysm or dissection. 2. The abdominal aorta is mildly atherosclerotic without aneurysm or dissection. 3. Mild airspace opacity in the anterior right middle lobe is most compatible with atelectasis. 4. Fluid is noted in the rectum, compatible with diarrhea. 5. Mild colonic diverticulosis without evidence for acute diverticulitis. 6. Moderate multilevel degenerative spine changes. 7. No definite acute pathology identified in the thorax, abdomen or pelvis. 8. No evidence for large or central pulmonary embolism. Electronically signed on December 28, 2018 2:46:26 AM EDT by: Esa Alfredo M.D., M.B.A., Certified By [employer] Fellowship Trained MRI and CT Specialist EXAM: CT Lumbar Spine without IV contrast. CLINICAL HISTORY: Fall 3 days ago, pain, images were reconstructed off the thins from the dissection study TECHNIQUE: Axial computed tomography images of the lumbar spine without intravenous contrast. Sagittal and coronal reformatted images were generated. 1746.84 mGy-cm COMPARISON: None provided. FINDINGS: ALIGNMENT: Bony alignment is anatomic. DISCS/DEGENERATIVE CHANGES: Limited evaluation. No convincing evidence for high-grade central canal stenosis. BONES: Lumbar spine demonstrates moderate multilevel degenerative changes. No CT evidence for acute fracture or subluxation in visualize lumbosacral spine. No evidence for high-grade central canal stenosis identified in the lumbar spine. SOFT TISSUES: The soft tissues are unremarkable. MISCELLANEOUS: No abnormal contrast enhancement. IMPRESSION: 1. Lumbar spine demonstrates moderate multilevel degenerative changes. 2. No CT evidence for acute fracture or subluxation in visualize lumbosacral spine. 3. No evidence for high-grade central canal stenosis identified in the lumbar spine. Electronically signed on December 28, 2018 2:46:19 AM EDT by: Esa Alfredo M.D., M.B.A., Certified By [employer] Trained MRI and CT Specialist --Patient still short of breath despite multiple treatments and solumedrol --Patient attempted to stand up and became pale, diaphoretic, and had worsened shortness of breath, was immediately placed back in stretcher --CTA shows no dissection or PE, CT lumbar shows no acute fracture, pelvis xray shows no acute fractures --Will admit to Dr. Forman's service for COPD exacerbation, dyspnea, and chest pain ---- Scribe Attestation: Documented by Wilson Marie, acting as a scribe Tiff Flores MD. Provider Scribe Attestation: All medical record entries made by the Scribe were at my direction and pe rsonally dictated by me. I have reviewed the chart and agree that the record accurately reflects my personal performance of the history, physical exam, medical decision making, and the department course for this patient. I have also personally directed, reviewed, and agree with the discharge instructions and disposition. Disposition - Clinical Impression Clinical Impression: COPD (chronic obstructive pulmonary disease), Chest pain, Shortness of breath - Patient ED Disposition Is Patient to be Admitted: Yes Counseled Patient/Family Regarding: Studies Performed - Disposition Disposition Time: 02:51 Condition: FAIR
[2018-12-27 23:48] LABS: BASO % 0.4 % (0.0-2.0); EOS # 0.1 K/uL (0.0-0.7); EOS % 0.5 % (0.0-4.0); HEMOGLOBIN 12.1 g/dL (12.0-16.0); LYMPH # 1.4 K/uL (1.0-4.3); LYMPH % 13.4 % (20.0-40.0); MEAN CELL VOLUME 90.6 fl (81.0-99.0); MEAN CORPUSCULAR HEMOGLOBIN 30.4 pg (27.0-31.0); MEAN CORPUSCULAR HGB CONC 33.5 g/dL (33.0-37.0); MEAN PLATELET VOLUME 7.8 fl (7.2-11.7); MONO # 1.1 K/uL (0.0-0.8); MONO % 10.4 % (0.0-10.0); NEUT # 7.9 K/uL (1.8-7.0); NEUT % 75.3 % (50.0-75.0); NRBC % 0.1 % (0.0-0.0); RED CELL DISTRIBUTION WIDTH 13.6 % (11.5-14.5); WHITE BLOOD COUNT 10.4 K/uL (4.8-10.8)
[2018-12-27 23:56] LABS: INR 1.2; PROTHROMBIN TIME 13.8 Seconds (9.8-13.1)
[2018-12-27 23:59] LABS: PARTIAL THROMBOPLASTIN TIME 25.8 Seconds (25.6-37.1)
[2018-12-28 00:03] LABS: BLOOD UREA NITROGEN 10 mg/dl (7-17); CALCIUM 8.3 mg/dL (8.4-10.2); GFR NON-AFRICAN AMERICAN > 60
[2018-12-28] MEDS ORDERED: Iohexol 300 100 ML IJ ONE (01:04)
[2018-12-28] MEDS ORDERED: Sodium Chloride 0.9% 50 ML IV ONE (01:04)
[2018-12-28] MEDS ORDERED: Iodixanol 320 MG/ML 100 ML BOTTLE IV ONE (01:05)
[2018-12-28] MEDS ORDERED: Albuterol-Ipratrop 3 mg / 0.5 (3 ml) UD INH STA ×3 (02:24→03:06)
[2018-12-28] MEDS ORDERED: Albuterol-Ipratrop 3 mg / 0.5 (3 ml) UD ONE ×2 (02:47→03:19)
[2018-12-28] MEDS ORDERED: Albuterol-Ipratrop 3 mg / 0.5 (3 ml) UD INH PRN (03:53)
[2018-12-28] MEDS ORDERED: Albuterol-Ipratrop 3 mg / 0.5 (3 ml) UD INH SCH (08:00)
--- NOTE | 2018-12-28 08:50 | RAD ---
Date of service: 12/27/2018 PROCEDURE: Radiographs of the pelvis. HISTORY: fall COMPARISON: None. TECHNIQUE: 1 view obtained. FINDINGS: BONES: The pelvic ring is intact without displaced fracture identified. Pubic symphysis is unremarkable. Pubic bony anatomy is otherwise unremarkable as well. Iliac bones and the sacrum are intact though mild sacroiliac joint degenerative changes are identified. Moderate bilateral hip degenerative changes are appreciated including limited osteophyte development. No destructive bony lesions are identified. JOINTS: As above. OTHER FINDINGS: None. IMPRESSION: Moderate bilateral hip and mild bilateral sacroiliac joint degenerative changes. No acute displaced fracture. No destructive bony lesion identified.
--- NOTE | 2018-12-28 08:52 | RAD ---
Date of service: 12/27/2018 HISTORY: fall COMPARISON: Chest radiographs 11/06/2016. TECHNIQUE: 1 view obtained. FINDINGS: LUNGS: Improved inspiratory volume. No active pulmonary disease appreciable. PLEURA: No significant pleural effusion identified, no pneumothorax apparent. CARDIOVASCULAR: No aortic atherosclerotic calcification present. Mild cardiomegaly is not excluded. No pulmonary vascular congestion. OSSEOUS STRUCTURES: No significant abnormalities. VISUALIZED UPPER ABDOMEN: Mammillation right hemidiaphragm noted. OTHER FINDINGS: None. IMPRESSION: Mild cardiomegaly not excluded. No pulmonary vascular congestion. Improved inspiratory volume. No infiltrates or definitive interval pleural disease.
[2018-12-28 09:09] LABS: BASO % 0.2 % (0.0-2.0); EOS % 0.2 % (0.0-4.0); HEMOGLOBIN 12.7 g/dL (12.0-16.0); LYMPH # 0.6 K/uL (1.0-4.3); LYMPH % 6.6 % (20.0-40.0); MEAN CELL VOLUME 91.1 fl (81.0-99.0); MEAN CORPUSCULAR HEMOGLOBIN 30.7 pg (27.0-31.0); MEAN CORPUSCULAR HGB CONC 33.7 g/dL (33.0-37.0); MEAN PLATELET VOLUME 7.7 fl (7.2-11.7); MONO # 0.3 K/uL (0.0-0.8); MONO % 3.4 % (0.0-10.0); NEUT # 8.1 K/uL (1.8-7.0); NEUT % 89.6 % (50.0-75.0); PLATELET COUNT 373 K/uL (130-400); RBC 4.14 Mil/uL (3.80-5.20); RED CELL DISTRIBUTION WIDTH 13.1 % (11.5-14.5)
[2018-12-28 09:22] LABS: ALB/GLOB RATIO 1.2 (1.0-2.1); ALBUMIN 3.9 g/dL (3.5-5.0); ALT/SGPT 42 U/L (9-52); AST/SGOT 42 U/L (14-36); BLOOD UREA NITROGEN 7 mg/dl (7-17); CALCIUM 8.8 mg/dL (8.4-10.2); GFR NON-AFRICAN AMERICAN > 60; HDL CHOLESTEROL 31 MG/DL (30-70)
[2018-12-28 09:30] LABS: LDL CHOLESTEROL 136 mg/dL (0-129)
--- NOTE | 2018-12-28 10:30 | CT ---
Date of service: 12/28/2018 PROCEDURE: CT Lumbar Spine without contrast HISTORY: fall COMPARISON: None available. TECHNIQUE: Axial computed tomography images were obtained of the lumbar spine without the use of intravenous contrast. Coronal and sagittal reformatted images were created and reviewed. Radiation dose: Total exam DLP = 0.0 mGy-cm. This CT exam was performed using one or more of the following dose reduction techniques: Automated exposure control, adjustment of the mA and/or kV according to patient size, and/or use of iterative reconstruction technique. FINDINGS: VERTEBRAE: Unremarkable. No fracture. Normal alignment. Multilevel facet joint degenerative change, primarily mid inferior lumbar levels bilaterally. DISCS/SPINAL CANAL/NEURAL FORAMINA: L1-2: Unremarkable. L2-3: Borderline degenerative central stenosis caused by posterior disc osteophyte complex combining with facet joint degenerative change. No significant neural foraminal stenosis bilaterally. L3-4: Moderate to severe degenerative central canal stenosis caused by disc osteophyte complex combined with moderate facet joint degenerative changes symmetrically. L4-5: Moderate degenerative central canal stenosis caused by disc osteophyte complex combined with moderate facet joint degenerative changes symmetrically. L5-S1: Limited disc bulge without significant stenosis resulting. PARASPINAL SOFT TISSUES: Nonaneurysmal abdominal aortic calcific atherosclerotic changes are identified. OTHER FINDINGS: None. IMPRESSION: Multilevel degenerative spinal stenosis at the inferior lumbar spine seen worst at for where moderate to severe central canal stenosis results from disc osteophyte complex combined with facet joint degenerative arthropathy. No gross disc herniation however MRI is available for greater soft tissue resolution of intervertebral discs in particular. No fracture or spondylolisthesis appreciable.
--- NOTE | 2018-12-28 10:44 | CT ---
Date of service: 12/28/2018 PROCEDURE: CT HEAD WITHOUT CONTRAST. HISTORY: fall COMPARISON: Unenhanced head CT 03/27/2016. TECHNIQUE: Axial computed tomography images were obtained through the head/brain without intravenous contrast. Radiation dose: Total exam DLP = 843.66 mGy-cm. This CT exam was performed using one or more of the following dose reduction techniques: Automated exposure control, adjustment of the mA and/or kV according to patient size, and/or use of iterative reconstruction technique. FINDINGS: HEMORRHAGE: No intracranial hemorrhage. BRAIN: Good corticomedullary differentiation is seen. Proportional, diffuse expansion of the ventriculosulcal and cisternal spaces is appreciated with white matter lucency compatible with diffuse cerebral atrophy and chronic microangiopathy. No suspicious extra-axial fluid collection is identified and the midline brain anatomy appears grossly nonfocal as imaged. There is no mass effect throughout. VENTRICLES: Unremarkable. No hydrocephalus. CALVARIUM: No destructive bony lesion or displaced fracture identified including through the skullbase. PARANASAL SINUSES: Unremarkable as visualized. No significant inflammatory changes. MASTOID AIR CELLS: Unremarkable as visualized. No inflammatory changes. OTHER FINDINGS: None. IMPRESSION: Age-appropriate age related neuro degenerative changes are reiterated and appears stable. No acute intracranial findings or fracture identified. Concordant preliminary report from [facility], 12/28/2018, 2:46 a.m..
--- NOTE | 2018-12-28 11:00 | CT ---
PROCEDURE: CT Angiography Chest, Abdomen and Pelvis with and without intravenous contrast HISTORY: SOB, elevated d-dimer, abd pain, back pain COMPARISON: None. TECHNIQUE: Contiguous axial images of the chest, abdomen and pelvis were obtained in the phase of aortic enhancement. A noncontrast enhanced CT of the chest was also obtained to evaluate for possible intramural thrombus. Coronal and sagittal reformats were generated. IV dose administered: Visipaque 320, 95 cc Radiation dose: Total exam DLP = 1746.84 mGy-cm. This CT exam was performed using one or more of the following dose reduction techniques: Automated exposure control, adjustment of the mA and/or kV according to patient size, and/or use of iterative reconstruction technique. FINDINGS: CT ANGIOGRAPHY OF THE CHEST WITH & WITHOUT CONTRAST: AORTA (CHEST AND ABDOMEN): The thoracic and abdominal aorta are unremarkable, without aneurysm, dissection or rupture. No intramural thrombus identified in the thoracic aorta on the non-contrast ct of the chest. Trace calcified aortic atherosclerosis noted as well as the bilateral iliac arterial system. Incidentally, central pulmonary arteries are normal in caliber and enhancement without evidence of thrombus in the lumen. The celiac axis, superior mesenteric artery, inferior mesenteric artery and the renal arteries are widely patent. The pelvic arteries are patent without significant stenosis appreciable. LUNGS: Clear. No nodule, mass or consolidation. MEDIASTINUM: Unremarkable. Normal caliber aorta and pulmonary arterial trunk. No aortic dissection. Normal size heart. LYMPH NODES: Shotty mediastinal lymph nodes are identified occasionally. PLEURA: Unremarkable. No pneumothorax. No pleural fluid. BONES: Unremarkable. OTHER FINDINGS: None. CT ANGIOGRAPHY OF THE ABDOMEN AND PELVIS WITH CONTRAST: LIVER: Borderline hepatomegaly. No gross lesion or ductal dilatation. GALLBLADDER AND BILE DUCTS: Distended but otherwise unremarkable appearing gallbladder. PANCREAS: Unremarkable. No gross lesion or ductal dilatation. SPLEEN: Unremarkable. ADRENALS: Hyperplastic left adrenal gland. Unremarkable right adrenal gland. KIDNEYS AND URETERS: Unremarkable. No hydronephrosis. No solid mass. VASCULATURE: Unremarkable. No aortic aneurysm. No aortic atherosclerotic calcification or mural plaque present. STOMACH AND BOWEL: The stomach is collapsed not well evaluated. No bowel obstruction appreciable. Scattered colonic diverticular seen throughout the colon without acute associated changes. Evaluation of the gastrointestinal tract is limited due to the lack of oral contrast administration. APPENDIX: Normal appendix. PERITONEUM: Unremarkable. No free fluid. No free air. LYMPH NODES: Unremarkable. No enlarged lymph nodes. BLADDER: Unremarkable. REPRODUCTIVE: Unremarkable. BONES: No acute fracture. OTHER FINDINGS: None. IMPRESSION: No thoracic or abdominal aortic aneurysm. No dissection throughout the entire aorta although occasional partially calcified atherosclerotic plaques are identified. No significant stenosis of local branches off the thoracic or abdominal aorta. Limited atelectasis medial right upper lobe with no additional acute findings in the thoracic portion of the exam. Scattered colonic diverticulosis without diverticulitis. No acute abdominal or pelvic findings as imaged. Concordant preliminary report from [facility], 12/28/2018, 2:46 a.m..
[2018-12-28 12:29] LABS: BANDS 1 % (0-2); LYMPHOCYTE 6 % (20-50); MONOCYTE 3 % (0-10); NEUTROPHIL 90 % (42-75); PLATELET ESTIMATE NORMAL (NORMAL); TOTAL CELLS COUNTED 100
[2018-12-28] MEDS: Albuterol-Ipratrop 3 mg / 0.5 (3 ml) UD INH SCH ×2 (13:42→19:41)
[2018-12-28] MEDS: Insulin Regular 100 units/ml SC SCH ×2 (13:45→16:26)
--- NOTE | 2018-12-28 16:20 | CP.PCM.HP ---
History of Present Illness - History of Present Illness History of Present Illness: CC: Fall/Trauma. 63 y/o F, PMHx includes: COPD O2 dependance, HTN, High-Cholestero, Anxiety, Depression. As per Son, [facility] to be evaluated for acute back pain 2nd to fall/trauma 3 days [employer] with no relief. Pt was c/o of lower back pain after she was trying to move a heavy furniture at home and fell in her back, pain described as aching, constant, intensity 9:10, radiating to L lower extremity, as per Son, associated symptoms of AMS, confusion, talking with non sense. Worsening symptoms: Unable to walk, irritability, SOB, [place], obesity BMI 39.9, also, c/o of CP, abdominal pain ( multiple bruises healing on lower abdomen but Pt doesn't know how she get the bruises). Aggravated factor: Movements/walking/exercise. CXR: No vascular congestion, no infiltrates or pleural disease. EKG: Sinus tachycardia. Lumbar Spine CT: Multilevel degenerative spinal stenosis, no Fx or spondylolisthesis. Head CT: No acute intracranial findings. Pelvis X Ray: Moderate b/l hip and mild sacroiliac joint degenerative changes, no Fx or bone lesion. CT Dissection study: No thoracic or abdominal aortic aneurysm, limited atelectasis medial RUL, scattered colonic diverticulosis without diverticulitis. Present on Admission - Present on Admission Any Indicators Present on Admission: No Review of Systems - Review of Systems Systems not reviewed;Unavailable: Acuity of Condition, Altered Mental Status Past Patient History - Infectious Disease Hx of Infectious Diseases: None - Tetanus Immunizations Tetanus Immunization: Unknown - Past Medical History & Family History Past Medical History?: Yes Pertinent Family History: Mother: COPD, DMII, HTN, Dyslipidemia - Past Social History Smoking Status: Former Smoker Alcohol: None Drugs: Denies Home Situation {Lives}: Alone - CARDIAC Hx Cardiac Disorders: Yes Hx Hypercholesterolemia: Yes Hx Hypertension: Yes - PULMONARY Hx Respiratory Disorders: Yes Hx Asthma: Yes Hx Chronic Obstructive Pulmonary Disease (COPD): Yes (with Home O2) - NEUROLOGICAL Hx Neurological Disorder: No Hx Seizures: No - HEENT Hx HEENT Problems: No - RENAL Hx Chronic Kidney Disease: No - ENDOCRINE/METABOLIC Hx Endocrine Disorders: No - HEMATOLOGICAL/ONCOLOGICAL Hx Blood Disorders: No Hx Human Immunodeficiency Virus (HIV): No - INTEGUMENTARY Hx Dermatological Problems: No - MUSCULOSKELETAL/RHEUMATOLOGICAL Hx Musculoskeletal Disorders: Yes Hx Arthritis: Yes Hx Falls: Yes - GASTROINTESTINAL Hx Gastrointestinal Disorders: Yes Hx Gastroesophageal Reflux: Yes - GENITOURINARY/GYNECOLOGICAL Hx Genitourinary Disorders: No Hx Sexually Transmitted Disorders: No - PSYCHIATRIC Hx Psychophysiologic Disorder: Yes Hx Anxiety: Yes Hx Bipolar Disorder: Yes Hx Depression: Yes Hx Schizophrenia: Yes Hx Substance Use: No - SURGICAL HISTORY Hx Surgeries: Yes Hx Section: Yes - ANESTHESIA Hx Anesthesia: Yes Hx Anesthesia Reactions: No Hx Malignant Hyperthermia: No Meds Allergies/Adverse Reactions: Allergies Allergy/AdvReac Type Severity Reaction Status Date / Time No Known Allergies Allergy Verified 08/12/18 16:10 Physical Exam - Constitutional Appears: Confused, Chronically Ill - Head Exam Head Exam: NORMAL INSPECTION - Eye Exam Eye Exam: PERRL - ENT Exam ENT Exam: Normal Exam - Neck Exam Neck exam: Positive for: Normal Inspection - Respiratory Exam Respiratory Exam: Decreased Breath Sounds (at bases), Rhonchi - Cardiovascular Exam Cardiovascular Exam: REGULAR RHYTHM - GI/Abdominal Exam GI & Abdominal Exam: Normal Bowel Sounds, Soft Additional comments: Multiple healing bruises lower abdomen - Extremities Exam Extremities exam: Positive for: normal inspection - Back Exam Back exam: NORMAL INSPECTION - Neurological Exam Additional comments: Awake, forgetful, confused, follows commands. - Psychiatric Exam Additional comments: Forgetful. - Skin Skin Exam: Warm Results - Vital Signs Recent Vital Signs: Last Vital Signs Temp 98.0 F 12/28/18 16:06 Pulse 95 H 12/28/18 16:06 Resp 17 12/28/18 16:06 BP 147/79 12/28/18 16:06 Pulse Ox 91 L 12/28/18 16:06 reviewed J.PMariposa - Labs Result Diagrams: 12/28/18 08:11 12/28/18 08:11 Labs: Laboratory Results - last 24 hr 12/27/18 12/27/18 12/27/18 23:25 23:37 23:37 WBC 10.4 RBC 4.00 Hgb 12.1 Hct 36.2 MCV 90.6 MCH 30.4 MCHC 33.5 RDW 13.6 Plt Count 359 MPV 7.8 Neut % (Auto) 75.3 H Lymph % (Auto) 13.4 L Gregory % (Auto) 10.4 H Eos % (Auto) 0.5 Baso % (Auto) 0.4 Neut # (Auto) 7.9 H Lymph # (Auto) 1.4 Gregory # (Auto) 1.1 H Eos # (Auto) 0.1 Baso # (Auto) 0.0 Neutrophils % (Manual) Band Neutrophils % Lymphocytes % (Manual) Monocytes % (Manual) Platelet Estimate RBC Morphology PT INR APTT D-Dimer, Quantitative pCO2 44 pO2 51 L HCO3 28.5 H ABG pH 7.44 ABG Total CO2 31.3 H ABG O2 Saturation 91.2 L ABG Base Excess 5.0 H Kurtis Test Yes ABG Potassium 3.8 A-a O2 Difference 44.0 Sodium 138.0 137 Chloride 105.0 102 Glucose 214 H Lactate 1.0 FiO2 21.0 Potassium 3.8 Carbon Dioxide 28 Anion Gap 11 BUN 10 Creatinine 0.5 L Est GFR ( Amer) > 60 Est GFR (Non-Af Amer) > 60 POC Glucose (mg/dL) Random Glucose 208 H Calcium 8.3 L Total Bilirubin AST ALT Alkaline Phosphatase Troponin I < 0.0120 Total Protein Albumin Globulin Albumin/Globulin Ratio Triglycerides Cholesterol LDL Cholesterol Direct HDL Cholesterol Thyroxine (T4) TSH 3rd Generation Arterial Blood Potassium 3.8 Blood Type Antibody Screen BBK History Checked 12/27/18 12/27/18 12/28/18 23:37 23:37 08:11 WBC 9.0 RBC 4.14 Hgb 12.7 Hct 37.7 MCV 91.1 MCH 30.7 MCHC 33.7 RDW 13.1 Plt Count 373 MPV 7.7 Neut % (Auto) 89.6 H Lymph % (Auto) 6.6 L Gregory % (Auto) 3.4 Eos % (Auto) 0.2 Baso % (Auto) 0.2 Neut # (Auto) 8.1 H Lymph # (Auto) 0.6 L Gregory # (Auto) 0.3 Eos # (Auto) 0.0 Baso # (Auto) 0.0 Neutrophils % (Manual) 90 H Band Neutrophils % 1 Lymphocytes % (Manual) 6 L Monocytes % (Manual) 3 Platelet Estimate Normal RBC Morphology Normal PT 13.8 H INR 1.2 APTT 25.8 D-Dimer, Quantitative 634 H pCO2 pO2 HCO3 ABG pH ABG Total CO2 ABG O2 Saturation ABG Base Excess Kurtis Test ABG Potassium A-a O2 Difference Sodium Chloride Glucose Lactate FiO2 Potassium Carbon Dioxide Anion Gap BUN Creatinine Est GFR ( Amer) Est GFR (Non-Af Amer) POC Glucose (mg/dL) Random Glucose Calcium Total Bilirubin AST ALT Alkaline Phosphatase Troponin I Total Protein Albumin Globulin Albumin/Globulin Ratio Triglycerides Cholesterol LDL Cholesterol Direct HDL Cholesterol Thyroxine (T4) TSH 3rd Generation Arterial Blood Potassium Blood Type O POSITIVE Antibody Screen Negative BBK History Checked No verified bt 12/28/18 12/28/18 12/28/18 08:11 11:07 15:48 WBC RBC Hgb Hct MCV MCH MCHC RDW Plt Count MPV Neut % (Auto) Lymph % (Auto) Gregory % (Auto) Eos % (Auto) Baso % (Auto) Neut # (Auto) Lymph # (Auto) Gregory # (Auto) Eos # (Auto) Baso # (Auto) Neutrophils % (Manual) Band Neutrophils % Lymphocytes % (Manual) Monocytes % (Manual) Platelet Estimate RBC Morphology PT INR APTT D-Dimer, Quantitative pCO2 pO2 HCO3 ABG pH ABG Total CO2 ABG O2 Saturation ABG Base Excess Kurtis Test ABG Potassium A-a O2 Difference Sodium 140 Chloride 102 Glucose Lactate FiO2 Potassium 4.0 Carbon Dioxide 31 H Anion Gap 11 BUN 7 Creatinine 0.4 L Est GFR ( Amer) > 60 Est GFR (Non-Af Amer) > 60 POC Glucose (mg/dL) 378 H 322 H Random Glucose 236 H Calcium 8.8 Total Bilirubin 0.4 AST 42 H ALT 42 Alkaline Phosphatase 92 Troponin I Total Protein 7.2 Albumin 3.9 Globulin 3.3 Albumin/Globulin Ratio 1.2 Triglycerides 145 Cholesterol 206 H LDL Cholesterol Direct 136 H HDL Cholesterol 31 Thyroxine (T4) 7.53 TSH 3rd Generation 0.06 L Arterial Blood Potassium Blood Type Antibody Screen BBK History Checked reviewed J.P. - EKG Data EKG comments: reviewed J.P. - Imaging and Cardiology Chest x-ray Status: Report reviewed by me (J.P.) CT scan - head Status: Report reviewed by me Lumbar Spine CT Status: Report reviewed by me (J.P.) Pelvis X-Ray Status: Report reviewed by me (J.P.) CT Dissection Study Status: Report reviewed by me (Rita.P.) Assessment & Plan (1) Acute back pain Status: Acute Priority: High (2) Altered mental status Status: Acute Priority: High (3) Status post fall Status: Acute Priority: High (4) COPD exacerbation Status: Acute Priority: High (5) Hyperglycemia Status: Acute Priority: High (6) Chest pain Status: Acute Priority: Medium (7) High cholesterol Status: Chronic Priority: High - Assessment and Plan (Free Text) Plan: Continue O2 NC 2 L/M, Troponin normal range, f/u Echo, Blood C-S, continue Solu- Medrol, Duoneb, Insulin, Lipitor and rest of Tx. PT eval. Neurology, Psychiatric and Pain Management consult - Date & Time Date: 12/28/18 Time: 12:00
--- NOTE | 2018-12-28 18:59 | CARD ---
APPROVED REPORT Date of service: 12/28/2018 EKG Measurement Heart [id number] <Conclusion> Sinus tachycardia Otherwise normal ECG
[2018-12-28] MEDS: MethylPREDNISolone 40 mg Vial IVP SCH (21:57)
[2018-12-28] MEDS: FLUTICASONE PROPION/SALMETEROL 232-14 INHALER IH SCH (21:57)
[2018-12-29 06:07] LABS: ABG ALLEN TEST YES; ARTERIAL BLOOD GAS HCO3 26.7 mmol/L (21-28); ARTERIAL BLOOD GAS HEMOGLOBIN 13.1 g/dL (11.7-17.4); ARTERIAL BLOOD GAS O2 CONTENT 17.5 ML/dL (15-23); ARTERIAL BLOOD GAS O2 SAT 97.4 % (95-98); ARTERIAL BLOOD GAS PCO2 38 mm/Hg (35-45); ARTERIAL BLOOD GAS PH 7.45 (7.35-7.45); ARTERIAL BLOOD GAS PO2 79 mm/Hg (80-100); ARTERIAL BLOOD GAS TCO2 27.6 mmol/L (22-28)
[2018-12-29] MEDS: Albuterol-Ipratrop 3 mg / 0.5 (3 ml) UD INH SCH ×3 (07:45→19:35)
--- NOTE | 2018-12-29 07:59 | CP.PCM.CON ---
History of Present Illness - History of Present Illness History of Present Illness: Neurology consult dictated. Miss Sorensen is a 62 yr old woman who is s/p fall from tripping at home. CT head is normal. Patient is stable. No further recommendations. Dr. santana neurology Past Patient History - Infectious Disease Hx of Infectious Diseases: None - Tetanus Immunizations Tetanus Immunization: Unknown - Past Medical History & Family History Past Medical History?: Yes - Past Social History Smoking Status: Former Smoker - CARDIAC Hx Cardiac Disorders: Yes Hx Hypercholesterolemia: Yes Hx Hypertension: Yes - PULMONARY Hx Respiratory Disorders: Yes Hx Asthma: Yes Hx Chronic Obstructive Pulmonary Disease (COPD): Yes (with Home O2) - NEUROLOGICAL Hx Neurological Disorder: No Hx Seizures: No - HEENT Hx HEENT Problems: No - RENAL Hx Chronic Kidney Disease: No - ENDOCRINE/METABOLIC Hx Endocrine Disorders: No - HEMATOLOGICAL/ONCOLOGICAL Hx Blood Disorders: No Hx Human Immunodeficiency Virus (HIV): No - INTEGUMENTARY Hx Dermatological Problems: No - MUSCULOSKELETAL/RHEUMATOLOGICAL Hx Musculoskeletal Disorders: Yes Hx Arthritis: Yes Hx Falls: Yes - GASTROINTESTINAL Hx Gastrointestinal Disorders: Yes Hx Gastroesophageal Reflux: Yes - GENITOURINARY/GYNECOLOGICAL Hx Genitourinary Disorders: No Hx Sexually Transmitted Disorders: No - PSYCHIATRIC Hx Psychophysiologic Disorder: Yes Hx Anxiety: Yes Hx Bipolar Disorder: Yes Hx Depression: Yes Hx Schizophrenia: Yes Hx Substance Use: No - SURGICAL HISTORY Hx Surgeries: Yes Hx Section: Yes - ANESTHESIA Hx Anesthesia: Yes Hx Anesthesia Reactions: No Hx Malignant Hyperthermia: No Meds Allergies/Adverse Reactions: Allergies Allergy/AdvReac Type Severity Reaction Status Date / Time No Known Allergies Allergy Verified 08/12/18 16:10 - Medications Medications: Current Medications Albuterol/Ipratropium (Duoneb 3 Mg/0.5 Mg (3 Ml) Ud) 3 ml INH RTID [facility] Last Admin: 12/29/18 07:45 Dose: 3 ml Insulin Human Regular (Humulin R) 0 units SC ACHS [facility]; Protocol Last Admin: 12/28/18 16:26 Dose: 8 units Methylprednisolone (Solu-Medrol) 30 mg IVP Q12H [facility] Last Admin: 12/28/18 21:57 Dose: 30 mg Results - Vital Signs Recent Vital Signs: Last Vital Signs Temp 98.8 F 12/29/18 05:18 Pulse 97 H 12/29/18 05:18 Resp 18 12/29/18 05:18 BP 139/82 12/29/18 05:18 Pulse Ox 92 L 12/29/18 05:18 - Labs Result Diagrams: 12/28/18 08:11 12/28/18 08:11 Labs: Laboratory Results - last 24 hr 12/28/18 12/28/18 12/28/18 08:11 08:11 11:07 WBC 9.0 RBC 4.14 Hgb 12.7 Hct 37.7 MCV 91.1 MCH 30.7 MCHC 33.7 RDW 13.1 Plt Count 373 MPV 7.7 Neut % (Auto) 89.6 H Lymph % (Auto) 6.6 L Crawford % (Auto) 3.4 Eos % (Auto) 0.2 Baso % (Auto) 0.2 Neut # (Auto) 8.1 H Lymph # (Auto) 0.6 L Crawford # (Auto) 0.3 Eos # (Auto) 0.0 Baso # (Auto) 0.0 Neutrophils % (Manual) 90 H Band Neutrophils % 1 Lymphocytes % (Manual) 6 L Monocytes % (Manual) 3 Platelet Estimate Normal RBC Morphology Normal pCO2 pO2 HCO3 ABG pH ABG Total CO2 ABG O2 Saturation ABG O2 Content ABG Base Excess ABG Hemoglobin ABG Carboxyhemoglobin POC ABG HHb (Measured) ABG Methemoglobin ABG O2 Capacity Kurtis Test A-a O2 Difference Hgb O2 Saturation FiO2 Sodium 140 Potassium 4.0 Chloride 102 Carbon Dioxide 31 H Anion Gap 11 BUN 7 Creatinine 0.4 L Est GFR ( Amer) > 60 Est GFR (Non-Af Amer) > 60 POC Glucose (mg/dL) 378 H Random Glucose 236 H Calcium 8.8 Total Bilirubin 0.4 AST 42 H ALT 42 Alkaline Phosphatase 92 Total Protein 7.2 Albumin 3.9 Globulin 3.3 Albumin/Globulin Ratio 1.2 Triglycerides 145 Cholesterol 206 H LDL Cholesterol Direct 136 H HDL Cholesterol 31 Thyroxine (T4) 7.53 TSH 3rd Generation 0.06 L 12/28/18 12/28/18 12/29/18 15:48 21:32 06:04 WBC RBC Hgb Hct MCV MCH MCHC RDW Plt Count MPV Neut % (Auto) Lymph % (Auto) Crawford % (Auto) Eos % (Auto) Baso % (Auto) Neut # (Auto) Lymph # (Auto) Crawford # (Auto) Eos # (Auto) Baso # (Auto) Neutrophils % (Manual) Band Neutrophils % Lymphocytes % (Manual) Monocytes % (Manual) Platelet Estimate RBC Morphology pCO2 38 pO2 79 L HCO3 26.7 ABG pH 7.45 ABG Total CO2 27.6 ABG O2 Saturation 97.4 ABG O2 Content 17.5 ABG Base Excess 2.4 ABG Hemoglobin 13.1 ABG Carboxyhemoglobin 1.8 H POC ABG HHb (Measured) 2.5 ABG Methemoglobin 1.0 ABG O2 Capacity 18.0 Kurtis Test Yes A-a O2 Difference 23.0 Hgb O2 Saturation 94.7 L FiO2 21.0 Sodium Potassium Chloride Carbon Dioxide Anion Gap BUN Creatinine Est GFR ( Amer) Est GFR (Non-Af Amer) POC Glucose (mg/dL) 322 H 234 H Random Glucose Calcium Total Bilirubin AST ALT Alkaline Phosphatase Total Protein Albumin Globulin Albumin/Globulin Ratio Triglycerides Cholesterol LDL Cholesterol Direct HDL Cholesterol Thyroxine (T4) TSH 3rd Generation
[2018-12-29] MEDS: Insulin Regular 100 units/ml SC SCH ×3 (09:07→16:10)
[2018-12-29] MEDS: MethylPREDNISolone 40 mg Vial IVP SCH ×2 (09:08→22:00)
[2018-12-29] MEDS: FLUTICASONE PROPION/SALMETEROL 232-14 INHALER IH SCH ×2 (09:08→22:00)
--- NOTE | 2018-12-29 11:08 | CP.PCM.CON ---
History of Present Illness - History of Present Illness History of Present Illness: Psychiatry consult called to evaluate confusion CC: Fall HPI: 63 yo female w/ h/o depression and anxiety, presents s/p fall. She is c urrently A + O x 4, calm, alert and cooperative w/ interview. She reports a history of depression and anxiety but denies acute worsening of symptoms. She denies acute AH/VH/SI/HI. She reports that she takes Xanax and Seroquel but can not confirm the doses. Psychoeducation provided to the patient that Xanax can increase risk of falls and confusion and that the patient should discuss tapering this medication with her primary psychiatrist. PPHx: H/o outpatient psychiatric treatment w/ Dr. Bynum. 3 past psychiatric hospitalizations; h/o suicide attempt at age 32. PMHx: COPD O2 dependance, HTN, DM, HLD ALL: NKDA SHx: Lives w/ son; denies drug/etoh/cig use Impression: 63 yo female w/ h/o depression and anxiety, w/ AMS now resolved. -No acute psychiatric admission indicated -Continue outpatient psychiatric treatment Past Patient History - Infectious Disease Hx of Infectious Diseases: None - Tetanus Immunizations Tetanus Immunization: Unknown - Past Medical History & Family History Past Medical History?: Yes - Past Social History Smoking Status: Former Smoker Alcohol: None Drugs: Denies Home Situation {Lives}: Alone - CARDIAC Hx Cardiac Disorders: Yes Hx Hypercholesterolemia: Yes Hx Hypertension: Yes - PULMONARY Hx Respiratory Disorders: Yes Hx Asthma: Yes Hx Chronic Obstructive Pulmonary Disease (COPD): Yes (with Home O2) - NEUROLOGICAL Hx Neurological Disorder: No Hx Seizures: No - HEENT Hx HEENT Problems: No - RENAL Hx Chronic Kidney Disease: No - ENDOCRINE/METABOLIC Hx Endocrine Disorders: No - HEMATOLOGICAL/ONCOLOGICAL Hx Blood Disorders: No Hx Human Immunodeficiency Virus (HIV): No - INTEGUMENTARY Hx Dermatological Problems: No - MUSCULOSKELETAL/RHEUMATOLOGICAL Hx Musculoskeletal Disorders: Yes Hx Arthritis: Yes Hx Falls: Yes - GASTROINTESTINAL Hx Gastrointestinal Disorders: Yes Hx Gastroesophageal Reflux: Yes - GENITOURINARY/GYNECOLOGICAL Hx Genitourinary Disorders: No Hx Sexually Transmitted Disorders: No - PSYCHIATRIC Hx Psychophysiologic Disorder: Yes Hx Anxiety: Yes Hx Bipolar Disorder: Yes Hx Depression: Yes Hx Schizophrenia: Yes Hx Substance Use: No - SURGICAL HISTORY Hx Surgeries: Yes Hx Section: Yes - ANESTHESIA Hx Anesthesia: Yes Hx Anesthesia Reactions: No Hx Malignant Hyperthermia: No Meds Allergies/Adverse Reactions: Allergies Allergy/AdvReac Type Severity Reaction Status Date / Time No Known Allergies Allergy Verified 08/12/18 16:10 - Medications Medications: Current Medications Albuterol/Ipratropium (Duoneb 3 Mg/0.5 Mg (3 Ml) Ud) 3 ml INH RTID [facility] Last Admin: 12/29/18 07:45 Dose: 3 ml Insulin Human Regular (Humulin R) 0 units SC ACHS [facility]; Protocol Last Admin: 12/29/18 09:07 Dose: 4 units Methylprednisolone (Solu-Medrol) 30 mg IVP Q12H [facility] Last Admin: 12/29/18 09:08 Dose: 30 mg Results - Vital Signs Recent Vital Signs: Last Vital Signs Temp 97.8 F 12/29/18 08:30 Pulse 93 H 12/29/18 08:30 Resp 20 12/29/18 08:30 BP 125/81 12/29/18 08:30 Pulse Ox 94 L 12/29/18 08:30 - Labs Result Diagrams: 12/28/18 08:11 12/28/18 08:11 Labs: Laboratory Results - last 24 hr 12/28/18 12/28/18 12/28/18 08:11 11:07 15:48 Neutrophils % (Manual) 90 H Band Neutrophils % 1 Lymphocytes % (Manual) 6 L Monocytes % (Manual) 3 Platelet Estimate Normal RBC Morphology Normal pCO2 pO2 HCO3 ABG pH ABG Total CO2 ABG O2 Saturation ABG O2 Content ABG Base Excess ABG Hemoglobin ABG Carboxyhemoglobin POC ABG HHb (Measured) ABG Methemoglobin ABG O2 Capacity Kurtis Test A-a O2 Difference Hgb O2 Saturation FiO2 POC Glucose (mg/dL) 378 H 322 H 12/28/18 12/29/18 12/29/18 21:32 06:04 06:20 Neutrophils % (Manual) Band Neutrophils % Lymphocytes % (Manual) Monocytes % (Manual) Platelet Estimate RBC Morphology pCO2 38 pO2 79 L HCO3 26.7 ABG pH 7.45 ABG Total CO2 27.6 ABG O2 Saturation 97.4 ABG O2 Content 17.5 ABG Base Excess 2.4 ABG Hemoglobin 13.1 ABG Carboxyhemoglobin 1.8 H POC ABG HHb (Measured) 2.5 ABG Methemoglobin 1.0 ABG O2 Capacity 18.0 Kurtis Test Yes A-a O2 Difference 23.0 Hgb O2 Saturation 94.7 L FiO2 21.0 POC Glucose (mg/dL) 234 H 245 H
--- NOTE | 2018-12-29 13:39 | CARD ---
APPROVED REPORT Date of service: 12/29/2018 EXAM: Two-dimensional and M-mode echocardiogram with Doppler and color Doppler. Other Information Quality : AverageRhythm : NSR INDICATION Hypertension/HCVD Cardiomagaly 2D DIMENSIONS IVSd1.29 (0.7-1.1cm)LVDd4.51 (3.9-5.9cm) LVOT Diameter2.25 (1.8-2.4cm)PWd1.26 (0.7-1.1cm) IVSs1.57 (0.8-1.2cm)LVDs2.70 (2.5-4.0cm) FS (%) 40.1 %PWs1.22 (0.8-1.2cm) M-Mode DIMENSIONS Left Atrium (MM)4.34 (2.5-4.0cm)IVSd1.19 (0.7-1.1cm) Aortic Root2.72 (2.2-3.7cm)LVDd6.41 (4.0-5.6cm) Aortic Cusp Exc.1.75 (1.5-2.0cm)PWd1.22 (0.7-1.1cm) IVSs2.19 cmFS (%) 38 % LVDs4.00 (2.0-3.8cm)PWs2.13 cm Aortic Valve AoV Peak Furpvdad676.6cm/sAoV VTI37.3cmAO Peak GR.12mmHg LVOT Peak Zvuapogn385.9cm/sLVOT VTI24.15cmAO Mean GR.7mmHg JOSEPH (VMAX)1.94ag1YSI (VTI)1.27cm2 Mitral Valve MV E Zbdiiync38.3cm/sMV DECEL [id number] A Ozurpofg22.2cm/s MV MKI36bcF/A ratio1.2MVA (PHT)3.59cm2 TDI Lateral E' Peak V12.55cm/sMedial E' Peak V10.92cm/sE/Lateral E'7.0 E/Medial E'8.0 Tricuspid Valve TR Peak Bltcyzhw348bl/sRAP [id number] Peak Gr.25mmHg SVRR88mbDv LEFT VENTRICLE The left ventricle is normal size. There is mild concentric left ventricular hypertrophy. The left ventricular systolic function is normal. The estimated ejection fraction is 60-65% No regional wall motion abnormalities noted.. Transmitral Doppler flow pattern is Grade II-pseudonormal filling dynamics. No left ventricle thrombus noted on this study. There is no ventricular septal defect visualized. There is no left ventricular aneurysm. There is no mass noted in the left ventricle. RIGHT VENTRICLE The right ventricle is normal size. There is normal right ventricular wall thickness. The right ventricular systolic function is normal. ATRIA The left atrium is mildly dilated. The right atrium size is normal. The interatrial septum is intact with no evidence for an atrial septal defect. AORTIC VALVE The aortic valve is normal in structure. No aortic regurgitation is present. There is no aortic valvular stenosis. There is no aortic valvular vegetation. MITRAL VALVE The mitral valve is normal in structure. There is no evidence of mitral valve prolapse. There is no mitral valve stenosis. There is no mitral valve regurgitation noted. TRICUSPID VALVE The tricuspid valve is normal in structure. There is trace tricuspid valve regurgitation noted. RVSP is calculated at 30 mm Hg. There is no tricuspid valve prolapse or vegetation. There is no tricuspid valve stenosis. PULMONIC VALVE The pulmonary valve is normal in structure. There is no pulmonic valvular regurgitation. There is no pulmonic valvular stenosis. GREAT VESSELS The aortic root is normal in size. The ascending aorta is normal in size. The pulmonary artery is normal. The IVC is dilated in size and collapses >50% with inspiration. PERICARDIAL EFFUSION There is no pericardial effusion. There is no pleural effusion. <Conclusion> There is mild concentric left ventricular hypertrophy. The estimated ejection fraction is 60-65% Transmitral Doppler flow pattern is Grade II-pseudonormal filling dynamics. The left atrium is mildly dilated. There is trace tricuspid valve regurgitation noted. RVSP is calculated at 30 mm Hg. The IVC is dilated in size and collapses >50% with inspiration.
--- NOTE | 2018-12-29 14:04 | CP.PCM.PN ---
Subjective - Date & Time of Evaluation Date of Evaluation: 12/29/18 Time of Evaluation: 11:00 - Subjective Subjective: F/U Fall/Trauma. AMS No SOB with O2, dry cough, L-S pain radiated to LLE. Objective - Vital Signs/Intake and Output Vital Signs (last 24 hours): Temp Pulse Resp BP Pulse Ox 97.2 F L 85 20 146/85 93 L 12/29/18 12:46 12/29/18 12:46 12/29/18 12:46 12/29/18 12:46 12/29/18 12:46 - Medications Medications: Current Medications Albuterol/Ipratropium (Duoneb 3 Mg/0.5 Mg (3 Ml) Ud) 3 ml INH RTID [facility] Last Admin: 12/29/18 07:45 Dose: 3 ml Insulin Human Regular (Humulin R) 0 units SC ACHS [facility]; Protocol Last Admin: 12/29/18 12:09 Dose: 4 units Methylprednisolone (Solu-Medrol) 30 mg IVP Q12H [facility] Last Admin: 12/29/18 09:08 Dose: 30 mg - Labs Labs: 12/28/18 08:11 12/28/18 08:11 PT 13.8 Seconds (9.8-13.1) H 12/27/18 23:37 INR 1.2 12/27/18 23:37 APTT 25.8 Seconds (25.6-37.1) 12/27/18 23:37 - Constitutional Appears: Confused, Chronically Ill - Head Exam Head Exam: NORMAL INSPECTION - Eye Exam Eye Exam: PERRL - ENT Exam ENT Exam: Normal Exam - Neck Exam Neck Exam: Normal Inspection - Respiratory Exam Respiratory Exam: Decreased Breath Sounds (at bases), Rhonchi - Cardiovascular Exam Cardiovascular Exam: REGULAR RHYTHM - GI/Abdominal Exam GI & Abdominal Exam: Soft, Normal Bowel Sounds Additional comments: Multiple healing bruises lower abdomen. - Extremities Exam Extremities Exam: Normal Inspection - Back Exam Back Exam: NORMAL INSPECTION - Neurological Exam Neurological Exam: Alert, Awake, Oriented x3 - Psychiatric Exam Additional comments: Calm - Skin Skin Exam: Warm Assessment and Plan (1) Acute back pain Status: Acute (2) Altered mental status Status: Acute (3) Status post fall Status: Acute (4) COPD exacerbation Status: Acute (5) Hyperglycemia Status: Acute (6) Chest pain Status: Acute (7) High cholesterol Status: Chronic - Assessment and Plan (Free Text) Plan: Pt for Echo today, continue Duoneb, Solu-Medrol and rst of Tx. Neurology and Psychiatric consult appreciated.
[2018-12-29] MEDS: Promethazine 12.5 mg/10 ml Syrup PO SCH ×2 (16:09→22:00)
[2018-12-29 16:18] LABS: SQUAMOUS EPITHIAL 3 /hpf (0-5); URINE BILIRUBIN NEGATIVE (NEGATIVE); URINE BLOOD MODERATE (NEGATIVE); URINE CLARITY SLIGHTY-CLOUDY (Clear); URINE COLOR YELLOW (YELLOW); URINE GLUCOSE (UA) NEG (NEGATIVE); URINE LEUKOCYTE ESTERASE NEG Leu/uL (Negative); URINE PROTEIN 100 mg/dL (NEGATIVE); URINE UROBILINOGEN 0.2-1.0 mg/dL (0.2-1.0)
[2018-12-30 00:40] VITALS: RESP 18
[2018-12-30] MEDS: Promethazine 12.5 mg/10 ml Syrup PO SCH ×2 (05:04→10:21)
[2018-12-30] MEDS: Insulin Regular 100 units/ml SC SCH ×4 (06:54→12:25)
[2018-12-30] MEDS: Albuterol-Ipratrop 3 mg / 0.5 (3 ml) UD INH SCH ×2 (07:52→13:16)
--- NOTE | 2018-12-30 08:16 | CON ---
DATE: 12/29/2018 Neurologic consult called by Mark Mcguire. HISTORY OF PRESENT ILLNESS: Ms. Sorensen is a 63-year-old woman with past medical history of COPD - on oxygen, hypertension, schizoaffective disorder, and diabetes type 1. She fell 3 feet prior to coming into the hospital when she was moving her furniture and as she fell she injured her lower back. The patient states she is able to walk since then. She has been bed bound for the last few days and she is confused. The son noted that the patient did feel warm and that she may have had a fever. REVIEW OF SYSTEMS: On exam, the patient experiencing severe shortness of breath. There were no other review of systems. PAST MEDICAL HISTORY: As stated. PAST SURGICAL HISTORY: section. FAMILY AND SOCIAL HISTORY: No alcohol. No tobacco. Lives with son. ALLERGIES: NO KNOWN DRUG ALLERGIES. MEDICATIONS AT HOME: Significant for Seroquel, insulin and albuterol. LABORATORY DATA: CAT scan of the head was done, which was within normal limits. Lumbar spine CT was done, which shows the following, multilevel degenerative joint disease with spinal stenosis lumbar spine, central canal stenosis and disk osteophyte complex with degenerative arthropathy. No fracture was noted. PHYSICAL EXAMINATION: GENERAL: On exam, the patient is alert and oriented x3. HEENT: Pupils equal, round, and reactive to light. NEUROLOGIC: Cranial nerves II through XII normal. EOMI. Motor, she had bilateral weakness, which was give way. Sensory is intact to fine touch, pin, and position. Gait is normal. Toes are downgoing. There is no clonus. within normal limits. IMPRESSION AND PLAN: This is a 63-year-old woman who fell and has mild dementia. There is no fracture. There is no intracerebral hemorrhage. At this point, I recommend physical therapy. No other intervention. Thank you for this interesting consult. Mignon Thomas MD
[2018-12-30] MEDS: FLUTICASONE PROPION/SALMETEROL 232-14 INHALER IH SCH (08:43)
[2018-12-30] MEDS: MethylPREDNISolone 40 mg Vial IVP SCH (08:45)
[2018-12-30 12:00] VITALS: BP 163/96; PULSE 74; TEMP 97.3; O2SAT 95
--- NOTE | 2018-12-30 13:05 | CP.PCM.DIS ---
Provider - Provider Date of Admission: 12/28/18 02:51 Attending physician: Tay Forman MD Consults: 12/28/18 06:12 Neurology Consult Routine Comment: Consulting Provider: Mignon Thomas Consulting Physician: Mignon Thomas Reason for Consult: s/p fall, AMS 12/28/18 16:58 Anesthesiology Consult Routine Comment: Consulting Provider: eLxx Raymundo Consulting Physician: Lexx Raymundo Reason for Consult: pain management Psychiatry Consult Routine Comment: Consulting Provider: Evi Mitchell Consulting Physician: Evi Mitchell Reason for Consult: confusion Diagnosis - Discharge Diagnosis (1) Acute back pain Status: Acute Priority: High (2) Altered mental status Status: Acute Priority: High (3) Status post fall Status: Acute Priority: High (4) COPD exacerbation Status: Acute Priority: High (5) Hyperglycemia Status: Acute Priority: High (6) Chest pain Status: Acute Priority: Medium (7) High cholesterol Status: Chronic Priority: High Hospital Course - Lab Results Lab Results: Micro Results 12/27/18 23:37 Blood Blood Culture - Preliminary NO GROWTH AFTER 48 HOURS Most Recent Lab Values WBC 9.0 K/uL (4.8-10.8) 12/28/18 08:11 RBC 4.14 Mil/uL (3.80-5.20) 12/28/18 08:11 Hgb 12.7 g/dL (12.0-16.0) 12/28/18 08:11 Hct 37.7 % (34.0-47.0) 12/28/18 08:11 MCV 91.1 fl (81.0-99.0) 12/28/18 08:11 MCH 30.7 pg (27.0-31.0) 12/28/18 08:11 MCHC 33.7 g/dL (33.0-37.0) 12/28/18 08:11 RDW 13.1 % (11.5-14.5) 12/28/18 08:11 Plt Count 373 K/uL (130-400) 12/28/18 08:11 MPV 7.7 fl (7.2-11.7) 12/28/18 08:11 Neut % (Auto) 89.6 % (50.0-75.0) H 12/28/18 08:11 Lymph % (Auto) 6.6 % (20.0-40.0) L 12/28/18 08:11 [place] % (Auto) 3.4 % (0.0-10.0) 12/28/18 08:11 Eos % (Auto) 0.2 % (0.0-4.0) 12/28/18 08:11 Baso % (Auto) 0.2 % (0.0-2.0) 12/28/18 08:11 Neut # (Auto) 8.1 K/uL (1.8-7.0) H 12/28/18 08:11 Lymph # (Auto) 0.6 K/uL (1.0-4.3) L 12/28/18 08:11 [place] # (Auto) 0.3 K/uL (0.0-0.8) 12/28/18 08:11 Eos # (Auto) 0.0 K/uL (0.0-0.7) 12/28/18 08:11 Baso # (Auto) 0.0 K/uL (0.0-0.2) 12/28/18 08:11 Neutrophils % (Manual) 90 % (42-75) H 12/28/18 08:11 Band Neutrophils % 1 % (0-2) 12/28/18 08:11 Lymphocytes % (Manual) 6 % (20-50) L 12/28/18 08:11 Monocytes % (Manual) 3 % (0-10) 12/28/18 08:11 Platelet Estimate Normal (NORMAL) 12/28/18 08:11 RBC Morphology Normal (NORMAL) 12/28/18 08:11 PT 13.8 Seconds (9.8-13.1) H 12/27/18 23:37 INR 1.2 12/27/18 23:37 APTT 25.8 Seconds (25.6-37.1) 12/27/18 23:37 D-Dimer, Quantitative 634 ng/mlDDU (0-230) H 12/27/18 23:37 pCO2 38 mm/Hg (35-45) 12/29/18 06:04 pO2 79 mm/Hg (80-100) L 12/29/18 06:04 HCO3 26.7 mmol/L (21-28) 12/29/18 06:04 ABG pH 7.45 (7.35-7.45) 12/29/18 06:04 ABG Total CO2 27.6 mmol/L (22-28) 12/29/18 06:04 ABG O2 Saturation 97.4 % (95-98) 12/29/18 06:04 ABG O2 Content 17.5 ML/dL (15-23) 12/29/18 06:04 ABG Base Excess 2.4 mmol/L (-2.0-3.0) 12/29/18 06:04 ABG Hemoglobin 13.1 g/dL (11.7-17.4) 12/29/18 06:04 ABG Carboxyhemoglobin 1.8 % (0.5-1.5) H 12/29/18 06:04 POC ABG HHb (Measured) 2.5 % (0.0-5.0) 12/29/18 06:04 ABG Methemoglobin 1.0 % (0.0-3.0) 12/29/18 06:04 ABG O2 Capacity 18.0 mL/dL (16-24) 12/29/18 06:04 Kurtis Test Yes 12/29/18 06:04 ABG Potassium 3.8 mmol/L (3.6-5.2) 12/27/18 23:25 A-a O2 Difference 23.0 mm/Hg 12/29/18 06:04 Hgb O2 Saturation 94.7 % (95.0-98.0) L 12/29/18 06:04 Sodium 138.0 mmol/L (132-148) 12/27/18 23:25 Chloride 105.0 mmol/L (98-107) 12/27/18 23:25 Glucose 214 mg/dL (65-105) H 12/27/18 23:25 Lactate 1.0 mmol/L (0.7-2.1) 12/27/18 23:25 FiO2 21.0 % 12/29/18 06:04 Sodium 140 mmol/l (132-148) 12/28/18 08:11 Potassium 4.0 MMOL/L (3.6-5.0) 12/28/18 08:11 Chloride 102 mmol/L (98-107) 12/28/18 08:11 Carbon Dioxide 31 mmol/L (22-30) H 12/28/18 08:11 Anion Gap 11 (10-20) 12/28/18 08:11 BUN 7 mg/dl (7-17) 12/28/18 08:11 Creatinine 0.4 mg/dl (0.7-1.2) L 12/28/18 08:11 Est GFR ( Amer) > 60 12/28/18 08:11 Est GFR (Non-Af Amer) > 60 12/28/18 08:11 POC Glucose (mg/dL) 212 mg/dL (65-110) H 12/30/18 10:31 Random Glucose 236 mg/dL (65-105) H 12/28/18 08:11 Calcium 8.8 mg/dL (8.4-10.2) 12/28/18 08:11 Total Bilirubin 0.4 mg/dl (0.2-1.3) 12/28/18 08:11 AST 42 U/L (14-36) H 12/28/18 08:11 ALT 42 U/L (9-52) 12/28/18 08:11 Alkaline Phosphatase 92 U/L (38-126) 12/28/18 08:11 Troponin I < 0.0120 ng/mL (0.00-0.120) 12/27/18 23:37 Total Protein 7.2 G/DL (6.3-8.2) 12/28/18 08:11 Albumin 3.9 g/dL (3.5-5.0) 12/28/18 08:11 Globulin 3.3 gm/dL (2.2-3.9) 12/28/18 08:11 Albumin/Globulin Ratio 1.2 (1.0-2.1) 12/28/18 08:11 Triglycerides 145 mg/DL (0-149) 12/28/18 08:11 Cholesterol 206 mg/dL (0-199) H 12/28/18 08:11 LDL Cholesterol Direct 136 mg/dL (0-129) H 12/28/18 08:11 HDL Cholesterol 31 MG/DL (30-70) 12/28/18 08:11 Thyroxine (T4) 7.53 ug/dl (5.5-11.0) 12/28/18 08:11 TSH 3rd Generation 0.06 mIU/ML (0.46-4.68) L 12/28/18 08:11 Arterial Blood Potassium 3.8 mmol/L (3.6-5.2) 12/27/18 23:25 Urine Color Yellow (YELLOW) 12/29/18 16:06 Urine Clarity Slighty-cloudy (Clear) 12/29/18 16:06 Urine pH 6.0 (5.0-8.0) 12/29/18 16:06 Ur Specific Gleason 1.021 (1.003-1.030) 12/29/18 16:06 Urine Protein 100 mg/dL (NEGATIVE) 12/29/18 16:06 Urine Glucose (UA) Neg mg/dL (NEGATIVE) 12/29/18 16:06 Urine Ketones Negative mg/dL (NEGATIVE) 12/29/18 16:06 Urine Blood Moderate (NEGATIVE) 12/29/18 16:06 Urine Nitrate Negative (NEGATIVE) 12/29/18 16:06 Urine Bilirubin Negative (NEGATIVE) 12/29/18 16:06 Urine Urobilinogen 0.2-1.0 mg/dL (0.2-1.0) 12/29/18 16:06 Ur Leukocyte Esterase Neg Mark/uL (Negative) 12/29/18 16:06 Urine RBC (Auto) 12 /hpf (0-3) H 12/29/18 16:06 Urine Microscopic WBC 2 /hpf (0-5) 12/29/18 16:06 Ur Squamous Epith Cells 3 /hpf (0-5) 12/29/18 16:06 Blood Type O POSITIVE 12/27/18 23:37 Antibody Screen Negative 12/27/18 23:37 BBK History Checked No verified bt 12/27/18 23:37 Discharge Exam - Head Exam Head Exam: NORMAL INSPECTION Discharge Plan - Discharge Medications Prescriptions: Fluticasone/Vilanterol 100/25 [Breo Ellipta 100-25 MCG INH] 1 puff INH DAILY #30 puff metFORMIN [glucOPHAGE] 500 mg PO BID #60 tab - Follow Up Plan Condition: FAIR Disposition: HOME/ ROUTINE
--- NOTE | 2018-12-30 13:55 | CP.PCM.PCO ---
Assessment/Plan - Assessment Assessment: Patient seen and examined at bedside vss, aox 3 denies chest pain, shortness of breath nausea vomiting. Discussed with dr Forman , medically cleared for discharge. Will discharge patient with omayra glucophage Patient has home O2 and nebulizers Patient referred for trilogy machine for her chronic COPD, discussed with ISABELLA King Will follow up
--- NOTE | 2018-12-31 13:05 | PQF ---
PROVIDER RESPONSE TEXT: Chest pain due to fall, non cardiac. REVIEWER QUERY TEXT: Symptom Underlying Cause Please document the underlying diagnosis causing the patient?s documented symptom(s) of Chest Pain o r unable to be further specified. The patient's Clinical Indicators include: S/P fall with c/o lower back pain, SOB. EKG: Sinus tachycardia. Troponin x 1 normal ECHO: There is mild concentric left ventricular hypertrophy.The estimated ejection fraction is 60-65% Transmitral Doppler flow pattern is Grade II-pseudonormal filling dynamics.The left atrium is mildl y dilated.There is trace tricuspid valve regurgitation noted. RVSP is calculated at 30 mm Hg. The IVC is dilated in size and collapses >50% with inspiration. Query created by: Karen Culp on 12/30/2018 10:14 AM Electronically signed by: Tay Forman MD 12/31/2018 1:02 PM
== END 2018-12-30 15:35 | disposition home health service (06) | DRG 88 ==
LOC: H.ER 22:37 → H.ERHOLD 12-28 02:51 → H.TEL 12-28 05:00
PROVIDERS: ADMIT Internal Medicine Pulmonary Disease; ATTEND Internal Medicine Pulmonary Disease
PROC: 3E0F7GC Introduction of Other Therapeutic Substance into Respiratory Tract, Via Natural or Artificial Opening (ICD-10-PCS; principal; 2018-12-28)
PROC: 3E0F73Z Introduction of Anti-inflammatory into Respiratory Tract, Via Natural or Artificial Opening (ICD-10-PCS; 2018-12-28)
DX: J44.1 Chronic obstructive pulmonary disease with (acute) exacerbation (principal); R09.02 Hypoxemia; F03.90 Unspecified dementia, unspecified severity, without behavioral disturbance, psychotic disturbance, mood disturbance, and anxiety; E11.65 Type 2 diabetes mellitus with hyperglycemia; F25.9 Schizoaffective disorder, unspecified; R07.89 Other chest pain; Z99.81 Dependence on supplemental oxygen; E78.5 Hyperlipidemia, unspecified; E78.00 Pure hypercholesterolemia, unspecified; I10 Essential (primary) hypertension; F31.9 Bipolar disorder, unspecified; K21.9 Gastro-esophageal reflux disease without esophagitis; M48.061 Spinal stenosis, lumbar region without neurogenic claudication; F41.9 Anxiety disorder, unspecified; Z91.81 History of falling; Z87.891 Personal history of nicotine dependence